=== PATIENT | male | born 1965 | race Caucasian/White ===

== ENCOUNTER 2020-09-27 20:40 | Inpatient (IN) | payer OTHER ==
[~2020-09-27] VITALS: Ht 185.4 cm; Wt 105.2 kg
[2020-09-27 20:40] VITALS: BP 118/83
--- NOTE | 2020-09-27 20:50 | NUR ---
Pt. arrived on unit at 2049 by EMS from [place]. Pt. complains of some discomfort. Call light left within reach and bed in lowest position. Will continue to monitor.
[2020-09-27] MEDS ORDERED: ONDANSETRON PF 4 MG/2 ML VIAL. IVP PRN (21:45)
[2020-09-27] MEDS ORDERED: ACETAMINOPHEN 325 MG TABLET. PO PRN (21:45)
[2020-09-27] MEDS: fentaNYL PF VIAL 100 MCG/2 ML VIAL IVP PRN (22:07)
[2020-09-27 23:00] VITALS: BP 114/76
[2020-09-28] VITALS (12 sets, daily range): BP systolic 109–162; BP diastolic 72–88
[2020-09-28] MEDS: fentaNYL PF VIAL 100 MCG/2 ML VIAL IVP PRN ×3 (03:05→09:42)
--- NOTE | 2020-09-28 03:52 | NUR ---
Pt. states he eats a keto diet at home. Addendum: 09/28/20 at 0358 by ANDRA LOWRY RN Amended: Links added.
[2020-09-28] MEDS ORDERED: SITA1TAB11 PO (04:02)
[2020-09-28] MEDS ORDERED: PHEN37.53 PO (04:02)
[2020-09-28] MEDS: BUPIVACAINE-EPI 0.5%-1:200000 MPF 30 ML VIAL. INJ ONE ×2 (07:30→12:23)
[2020-09-28 08:19] LABS: CREATININE 0.8 mg/dL (0.7-1.3); GFR 100.7
--- NOTE | 2020-09-28 08:38 | PDOC2 ---
ELTON TRAN SOIL SCIENTIST 09/28/20 0838: CONSULT Date of Consult Date of Consult DATE: 09/28/20 TIME: 08:34 Reason for Consult Reason for Consult: appendicitis Referring Physician Referring Physician: [facility] ER Identification/Chief Complaint Chief Complaint abdominal pain Source Source: Chart review, Patient History of Present Illness Reason for Visit: Reports started with right flank pain that radiated to his RLQ. It was a stabbing pain. No n/v, no constipation or diarrhea. Maybe some similar pain in past, but not really sure. Past Medical History Endocrine: Diabetes Past Surgical History Past Surgical History: No pertinent history Family History Family History: Other (noncontributory to current illness ) Social History No ALCOHOL: occassional Drugs: None Lives: with Family Current Medications Current Medications Current Medications Fentanyl Citrate (Fentanyl 2ml Vial) 50 mcg PRN Q3HRS PRN IVP SEVERE PAIN 7-10 Last administered on 09/28/20at 06:17; Start 09/27/20 at 21:45 Ondansetron HCl (Zofran) 4 mg PRN Q6HRS PRN IVP NAUSEA/VOMITING 1ST CHOICE; Start 09/27/20 at 21:45 Acetaminophen (Tylenol) 650 mg PRN Q6HRS PRN PO MILD PAIN / TEMP > 100.3'F; Start 09/27/20 at 21:45 Sodium Chloride 1,000 ml @ 75 mls/hr [id number] IV Last administered on 09/28/20at 00:00; Start 09/28/20 at 00:00 Influenza Virus Vaccine Quadrival (Fluzone Quad [id number] Syringe) 0.5 ml ONCE ONCE VAX IM ; Start 09/28/20 at 15:00; Stop 09/28/20 at 15:01 Bupivacaine HCl/ Epinephrine Bitart (Sensorcain-Epi 0.5%-1:[id number] Mpf) 30 ml 1X ONCE INJ ; Start 09/28/20 at 07:30; Stop 09/28/20 at 07:31; Status DC Active Scripts Active Reported Phentermine Hcl 37.5 Mg Capsule 1 Cap PO [id number] Janumet 50-1,000 Mg Tablet (Sitagliptin Phos/Metformin Hcl) 1 Each Tablet 1 Tab PO BID Allergies Allergies: Coded Allergies: No Known Drug Allergies (Unverified , 09/27/20) ROS General: No: Chills, Other (fevers) PSYCHOLOGICAL ROS: No: Anxiety, Depression Eyes: No Blurry vision, No Double vision HEENT: No: Heacaches, Sore Throat Hematological and Lymphatic: No: Bleeding Problems, Blood Clots Respiratory: No: Cough, Shortness of breath Cardiovascular: No Chest Pain, No Palpitations Gastrointestinal: Yes Other (see hpi) Genitourinary: No Dysuria, No Retention Musculoskeletal: No Joint Pain, No Muscle Pain Neurological: No Impaired Coord/balance, No Numbness/Tingling Skin: No Pruritus, No Rash Physical Exam General: Alert, Oriented X3, Cooperative HEENT: Atraumatic, PERRLA Lungs: Clear to auscultation, Normal air movement Heart: Regular rate, Normal S1, Normal S2 Abdomen: Soft, Other (RLQ TTP with guarding ) Extremities: No clubbing, No cyanosis Skin: No rashes, No breakdown Neuro: Normal gait, Normal speech Psych/Mental Status: Mental status NL, Mood NL MUSCULOSKELETAL: No deformity, No swelling Vitals VITALS Vital Signs Date Time Temp Pulse Resp B/P (MAP) Pulse Ox O2 Delivery O2 Flow Rate FiO2 09/28/20 07:00 98.1 92 16 109/74 (86) 96 Room Air 98.1 Labs Labs Laboratory Tests Test 09/27/20 20:56 09/28/20 07:00 09/28/20 07:35 Glucose (Fingerstick) 142 mg/dL (70-99) 150 mg/dL (70-99) Sodium Level 141 mmol/L (136-145) Potassium Level 4.0 mmol/L (3.5-5.1) Chloride Level 106 mmol/L (98-107) Carbon Dioxide Level 26 mmol/L (21-32) Anion Gap 9 (6-14) Blood Urea Nitrogen 8 mg/dL (8-26) Creatinine 0.8 mg/dL (0.7-1.3) Estimated GFR (Cockcroft-Gault) 100.7 Glucose Level 133 mg/dL (70-99) Calcium Level 9.0 mg/dL (8.5-10.1) Laboratory Tests Test 09/27/20 20:56 09/28/20 07:00 09/28/20 07:35 Glucose (Fingerstick) 142 mg/dL (70-99) 150 mg/dL (70-99) Sodium Level 141 mmol/L (136-145) Potassium Level 4.0 mmol/L (3.5-5.1) Chloride Level 106 mmol/L (98-107) Carbon Dioxide Level 26 mmol/L (21-32) Anion Gap 9 (6-14) Blood Urea Nitrogen 8 mg/dL (8-26) Creatinine 0.8 mg/dL (0.7-1.3) Estimated GFR (Cockcroft-Gault) 100.7 Glucose Level 133 mg/dL (70-99) Calcium Level 9.0 mg/dL (8.5-10.1) Assessment/Plan Assessment/Plan acute appendicitis add abx plan lap appy today dm management per IPC MADISYN JOHNSON MD 09/28/20 1201: CONSULT Assessment/Plan Assessment/Plan Pt seen and examined by myself; 55 year old male who developed R flank and RLQ pain yesterday. He reported to the ER at [facility] and a CT scan was suggestive of appendicitis. PMH/PSH/ROS/SH as above; exam: alert, oriented, lungs clear,heart RR and R, abdomen soft, tender with guarding in RLQ, ext neg for edema; labs and CT reviewed. A/P) Acute appendicitis, plan for lap appy. The details and risks of surgery were discussed with the patient. He understands and would like to proceed. ELTON TRAN APRN Sep 28, 2020 08:38 MADISYN JOHNSON MD Sep 28, 2020 12:01
--- NOTE | 2020-09-28 09:42 | NUR ---
SW following. Discussed with RN, pt from home, room air, NPO. Pt having surgery today. RN advised no SW needs at this time. SW will continue to follow.
[2020-09-28] MEDS ORDERED: DEXTROSE 50% 25 GM / 50ML DISP.SYRIN. IV PRN (09:45)
[2020-09-28] MEDS ORDERED: PROCHLORPERAZINE 10 MG/2 ML VIAL. IV PRN (10:45)
[2020-09-28] MEDS ORDERED: HYDROmorphone 2 MG/ML VIAL IV PRN (10:45)
[2020-09-28] MEDS ORDERED: LIDOCAINE 1% PF 2 ML VIAL. ID PRN (10:45)
[2020-09-28] MEDS ORDERED: fentaNYL PF VIAL 100 MCG/2 ML VIAL IV PRN (10:45)
[2020-09-28] MEDS: IV RINGERS,LACTATED 1000ML 1,000 ML IV SCH ×2 (10:45→13:30)
[2020-09-28] MEDS ORDERED: ONDANSETRON PF 4 MG/2 ML VIAL. IV PRN (10:45)
[2020-09-28] MEDS ORDERED: MORPHINE SULFATE 2 MG/ML VIAL. IV PRN (10:45)
[2020-09-28] MEDS: INSULIN LISPRO 100 UNIT/ML 3ML VIAL for OP,RR ONLY. SQ PRN ×2 (11:23→15:56)
[2020-09-28] MEDS ORDERED: LIDOCAINE 2% PF 5 ML VIAL. ONE (11:28)
[2020-09-28] MEDS ORDERED: DEXAMETHASONE SOD PHOS 4 MG/ML VIAL ONE (11:28)
[2020-09-28] MEDS ORDERED: ONDANSETRON PF 4 MG/2 ML VIAL. ONE (11:28)
[2020-09-28] MEDS ORDERED: PROPOFOL 10 MG/ML (20ML) VIAL. IV ONE (11:28)
[2020-09-28] MEDS ORDERED: SEVOFLURANE 61 TO 120 MINUTES. IH ONE (11:28)
[2020-09-28] MEDS ORDERED: fentaNYL PF VIAL 100 MCG/2 ML VIAL ONE ×2 (11:28→15:13)
[2020-09-28] MEDS ORDERED: KETOROLAC 30 MG/ML VIAL. ONE (11:28)
[2020-09-28] MEDS ORDERED: ROCURONIUM 50 MG/5 ML VIAL. ONE ×2 (11:28→12:58)
[2020-09-28] MEDS: PIPERACILLIN/TAZOBACTAM 3.375 GM in IV NORMAL SALINE 50ML 50 ML IV SCH ×3 (11:30→23:43)
[2020-09-28] MEDS ORDERED: GLYCOPYRROLATE 1 MG/5 ML VIAL. ONE (12:26)
[2020-09-28] MEDS ORDERED: NEOSTIGMINE METHYLSULFATE 5 MG/5 ML SYRINGE. ONE (12:26)
[2020-09-28] MEDS: IV NORMAL SALINE 1000ML BAG 1,000 ML IV SCH ×3 (13:20→18:19)
--- NOTE | 2020-09-28 14:29 | PDOC4 ---
Operative Note Operative Note Preoperative Diagnosis: Acute Appendicitis Postoperative Diagnosis: Acute appendicitis, possible chronic Procedure: Laparoscopic converted to open appendectomy Surgeon: Esvin Marketing Data Specialist: Jefry CLIFTON Anesthesia: Gen. EBL: 50 mL Specimen: Appendix to pathology Drains: 19 Fr GRICELDA drain Complications: None Indication: The patient is a 55-year-old male who reported to the emergency department with abdominal pain. The evaluation is consistent with acute appendicitis. The patient was offered surgical treatment with a laparoscopic appendectomy. The risks of surgery were discussed which include bleeding, infection, visceral injury, pain, open conversion, anesthetic risk, potential need for additional surgery or procedure. The patient understands and would like to proceed. Description: The patient was taken to the operating room and placed supine on the operating table. Gen. anesthesia was performed. The abdomen was prepped with ChloraPrep and draped in a standard surgical manner. A supraumbilical incision was made through which a veress needle was inserted and a pneumoperitoneum was created. A visualized 5 mm trocar was inserted and the laparoscope was introduced. In the left lower quadrant a 5 mm trocar was inserted. In the suprapubic region a 12 mm trocar was inserted. There was an obvious inflammator y process in the right abdomen with the terminal ileum densely adherent to the cecum.. The ileum was mobilized away exposing a very thickened hardened appendix. The surrounding inflammatory reaction was very fibrotic and initially raised concerns for a possible malignancy. The mesoappendix was bluntly from the appendix. The mesoappendix was controlled using several clips and it was divided. We made gradual progress freeing up the appendix proximally. The very fibrotic inflammatory reaction made this difficult. In addition the base of the appendix appeared inverted into the cecum which was difficult to fully visualize laparoscopically. Due to these changes we elected to convert to an open procedure. A vertical midline incision was made in the skin with a scalpel. Cautery dissection was carried down to the fascia. The fascia and peritoneum were opened for the length of the incision. The Omni retractor was used for the remainder of the case to facilitate exposure. We began mobilizing the cecum in order to better clarify the anatomy and the origin of the appendix. The fibrotic inflammatory process appeared to involve the right lower quadrant sidewall. Gradually we were able to see and mobilize the appendix at its suspected junction with the cecum. The appendix was amputated off the cecum using an Endo JD 45 stapling device. The appendix was sent to pathology and a frozen section was requested out of concern for malignancy. Frozen section evaluation seem to suggest appendicitis with a chronic component. The right lower quadrant was then irrigated with sterile saline which was suctioned. The staple line was visualized and appeared intact and hemostasis was good. No other abnormalities were identified grossly. A 19 Citizen [place] round Link drain was left in the right lower quadrant with an exit site at the left lower quadrant laparoscopic incision. This was secured to the skin with 2-0 silk. The midline fascia was then approximated with 1 PDS. A Carmelina drain was left in the subcutaneous space which exited inferiorly. This was secured to the skin with 3-0 Vicryl. The subcutaneous tissue was closed with 3-0 Vicryl and the skin approximated with 4-0 Monocryl. A sterile dressing was then applied. The patient tolerated the procedure well and was sent to the recovery room in stable condition. At the end of the case all counts were correct. MADISYN JOHNSON MD Sep 28, 2020 14:29
[2020-09-28] MEDS ORDERED: NALOXONE 0.4 MG/ML VIAL. IV PRN (14:30)
[2020-09-28] MEDS ORDERED: FLU VACC QS 2020-21(6MOS+)/PF 0.5 ML SYRINGE. VAX IM ONE (15:00)
[2020-09-28] MEDS: fentaNYL PF VIAL 100 MCG/2 ML VIAL IV PRN ×2 (15:18→15:35)
[2020-09-28] MEDS: HYDROmorphone 12mg/30ml PCA 30 ML IV PRN (15:26)
--- NOTE | 2020-09-28 17:29 | PDOC1 ---
History and Physical Date of Admission Date of Admission 09/28/2020 / Identification/Chief Complaint Chief Complaint Kinsey smith Source Source: Chart review, Patient History of Present Illness History of Present Illness Patient is a 55-year-old gentleman with past medical history of diabetes who was in his usual state of health until approximately couple of hours prior to his evaluation at [facility] when he complained of sharp pain sudden onset of right lower quadrant which is a recurrence of previous bouts as he relates to me. He rated the pain at 8 out of 10 intensity with no associated nausea vomiting he did have some diaphoresis due to the discomfort no urinary symptoms no constipation no diarrhea. He was diagnosed with acute appendicitis in the outlying facility and transferred to our institution for definitive treatment with appendectomy. At the time my evaluation the patient is mildly uncomfortable and is awaiting for surgical intervention. Reassurance has been provided the patient denied any headache blurred vision no dysphagia odynophagia no slurred speech no chest pain palpitations no shortness of breath no other complaints were voiced no urinary symptoms. Plan of care explained detail all of her concerns and progress to the best of my abilities Past Medical History Endocrine: Diabetes Past Surgical History Past Surgical History: No pertinent history Family History Family History: No Significant, Other (noncontributory to current illness ) Social History Smoke: No ALCOHOL: none Drugs: None Current Medications Current Medications Current Medications Medications (Trade) Dose Ordered Sig/Raymond Start Time Stop Time Status Last Admin Dose Admin Acetaminophen (Tylenol) 650 mg PRN Q6HRS PRN 09/27/20 21:45 Bupivacaine HCl/ Epinephrine Bitart (Sensorcain-Epi 0.5%-1:696728 Mpf) 30 ml 1X ONCE 09/28/20 07:30 09/28/20 07:31 DC Dexamethasone Sodium Phosphate (Decadron) 4 mg STK-MED ONCE 09/28/20 11:28 09/28/20 11:29 DC Dextrose (Dextrose 50%-Water Syringe) 12.5 gm PRN Q15MIN PRN 09/28/20 09:45 Fentanyl Citrate (Fentanyl 2ml Vial) 100 mcg STK-MED ONCE 09/28/20 15:13 09/28/20 15:14 DC Glycopyrrolate (Robinul) 1 mg STK-MED ONCE 09/28/20 12:26 09/28/20 12:26 DC Hydromorphone HCl 30 ml @ 0 mls/hr CONT PRN PRN 09/28/20 14:30 09/28/20 15:26 0 MLS/HR Hydromorphone HCl (Dilaudid) 0.5 mg PRN Q10MIN PRN 09/28/20 10:45 09/29/20 10:44 Influenza Virus Vaccine Quadrival (Fluzone Quad Syringe) 0.5 ml ONCE ONCE 09/28/20 15:00 09/28/20 15:01 DC Insulin Glargine (Lantus Syringe) 10 unit QHS 09/28/20 21:00 Insulin Human Lispro (HumaLOG VIAL for OP,RR ONLY) 0-10 units PRN Q1HR PRN 09/28/20 11:30 09/29/20 11:29 09/28/20 15:56 4 UNIT Ketorolac Tromethamine (Toradol 30mg Vial) 30 mg STK-MED ONCE 09/28/20 11:28 09/28/20 11:29 DC Lidocaine HCl (Lidocaine Pf 2% Vial) 5 ml STK-MED ONCE 09/28/20 11:28 09/28/20 11:29 DC Lidocaine HCl (Xylocaine-Mpf 1% 2ml Vial) 2 ml PRN 1X PRN 09/28/20 10:45 09/29/20 10:44 Morphine Sulfate (Morphine Sulfate) 1 mg PRN Q10MIN PRN 09/28/20 10:45 09/29/20 10:44 Naloxone HCl (Narcan) 0.4 mg PRN Q2MIN PRN 09/28/20 14:30 Neostigmine Polk (Neostigmine Methylsulfate) 5 mg STK-MED ONCE 09/28/20 12:26 09/28/20 12:26 DC Ondansetron HCl (Zofran) 4 mg STK-MED ONCE 09/28/20 11:28 09/28/20 11:29 DC Piperacillin Sod/ Tazobactam Sod 3.375 gm/Sodium Chloride 50 ml @ 100 mls/hr Q6HRS 09/28/20 12:00 09/28/20 11:30 100 MLS/HR Prochlorperazine Edisylate (Compazine) 5 mg PACU PRN PRN 09/28/20 10:45 09/29/20 10:44 Propofol (Diprivan) 200 mg STK-MED ONCE 09/28/20 11:28 09/28/20 11:29 DC Ringer's Solution 1,000 ml @ 30 mls/hr Q24H 09/28/20 10:45 09/28/20 22:44 09/28/20 13:30 30 MLS/HR Rocuronium Polk (Zemuron) 50 mg STK-MED ONCE 09/28/20 12:58 09/28/20 12:58 DC Sevoflurane (Ultane) 60 ml STK-MED ONCE 09/28/20 11:28 09/28/20 11:28 DC Sodium Chloride 1,000 ml @ 25 mls/hr Q24H 09/28/20 14:30 Allergies Allergies Allergies Coded Allergies Type Severity Reaction Last Updated Verified No Known Drug Allergies 09/28/20 No ROS Review of System CONSTITUTIONAL: No fever or chills EYES: No recent changes SKIN: No rash or itching CARDIOVASCULAR: No chest pain, syncope, palpitations, or edema RESPIRATORY: No SOB or cough GASTROINTESTINAL: No nausea, vomiting or abdominal pain NEUROLOGICAL: No headaches or weakness ENDOCRINE: No cold or heat intolerance GENITOURINARY: No urgency or frequency of urination MUSCULOSKELETAL: No back pain or joint pain LYMPHATICS: No enlarged lymph nodes PSYCHIATRIC: No anxiety or depression Physical Exam Physical Exam GEN.: No apparent distress. Alert and oriented. HEENT: Head is normocephalic, atraumatic NECK: Supple. LUNGS: Clear to auscultation. HEART: RRR, S1, S2 present. Peripheral pulses intact ABDOMEN: Soft, nontender. Positive bowel sounds. EXTREMITIES: Without any cyanosis. NEUROLOGIC: Normal speech, normal tone PSYCHIATRIC: Normal affect, normal mood. SKIN: No ulcerations Vitals Vitals Vital Signs Date Time Temp Pulse Resp B/P (MAP) Pulse Ox O2 Delivery O2 Flow Rate FiO2 09/28/20 16:03 Nasal Cannula 2 09/28/20 16:02 96 20 128/79 95 09/28/20 15:47 98.1 98.1 Labs Labs Laboratory Tests Test 09/27/20 20:56 09/28/20 07:00 09/28/20 07:35 09/28/20 10:05 Glucose (Fingerstick) 142 mg/dL (70-99) 150 mg/dL (70-99) 132 mg/dL (70-99) Sodium Level 141 mmol/L (136-145) Potassium Level 4.0 mmol/L (3.5-5.1) Chloride Level 106 mmol/L (98-107) Carbon Dioxide Level 26 mmol/L (21-32) Anion Gap 9 (6-14) Blood Urea Nitrogen 8 mg/dL (8-26) Creatinine 0.8 mg/dL (0.7-1.3) Estimated GFR (Cockcroft-Gault) 100.7 Glucose Level 133 mg/dL (70-99) Calcium Level 9.0 mg/dL (8.5-10.1) Test 09/28/20 15:52 09/28/20 16:42 Glucose (Fingerstick) 160 mg/dL (70-99) 156 mg/dL (70-99) Laboratory Tests Test 09/27/20 20:56 09/28/20 07:00 09/28/20 07:35 09/28/20 10:05 Glucose (Fingerstick) 142 mg/dL (70-99) 150 mg/dL (70-99) 132 mg/dL (70-99) Sodium Level 141 mmol/L (136-145) Potassium Level 4.0 mmol/L (3.5-5.1) Chloride Level 106 mmol/L (98-107) Carbon Dioxide Level 26 mmol/L (21-32) Anion Gap 9 (6-14) Blood Urea Nitrogen 8 mg/dL (8-26) Creatinine 0.8 mg/dL (0.7-1.3) Estimated GFR (Cockcroft-Gault) 100.7 Glucose Level 133 mg/dL (70-99) Calcium Level 9.0 mg/dL (8.5-10.1) Test 09/28/20 15:52 09/28/20 16:42 Glucose (Fingerstick) 160 mg/dL (70-99) 156 mg/dL (70-99) VTE Prophylaxis Ordered VTE Prophylaxis Devices: No VTE Pharmacological Prophylaxi: Yes Assessment/Plan Assessment/Plan Acute appendicitis Leukocytosis secondary to the above Diabetes mellitus type 2 Plan Resume home medications Pain management Incentive spirometer DT prophylaxis with Lovenox once approved by medical surgical tech Sequential compression devices Justifications for Admission Other Justification MARGI OGDEN MD Sep 28, 2020 17:29
[2020-09-28] MEDS: INSULIN GLARGINE SYRINGE. SQ SCH ×2 (21:00→22:22)
[2020-09-29 03:28] VITALS: BP 131/75
[2020-09-29] MEDS: PIPERACILLIN/TAZOBACTAM 3.375 GM in IV NORMAL SALINE 50ML 50 ML IV SCH ×3 (05:52→18:00)
[2020-09-29 07:00] VITALS: BP 124/85
[2020-09-29 08:57] LABS: BASO % 0 % (0-3); EOS # 0.1 x10^3/uL (0.0-0.7); EOS % 1 % (0-3); HEMATOCRIT 42.4 % (39.0-53.0); HEMOGLOBIN 14.2 g/dL (13.0-17.5); LYMPH # 1.1 x10^3/uL (1.0-4.8); LYMPH % 10 % (24-48); MEAN CORPUSCULAR HEMOGLOBIN 29 pg (25-35); MEAN CORPUSCULAR HGB CONC 34 g/dL (31-37); MEAN CORPUSCULAR VOLUME 87 fL (79-100); MONO # 1.4 x10^3/uL (0.0-1.1); MONO % 13 % (0-9); NEUT # 8.2 x10^3/uL (1.8-7.7); NEUT % 76 % (31-73); PLATELET COUNT 247 x10^3/uL (140-400); RED BLOOD COUNT 4.88 x10^6/uL (4.30-5.70); RED CELL DISTRIBUTION WIDTH 12.9 % (11.5-14.5); WHITE BLOOD COUNT 10.7 x10^3/uL (4.0-11.0)
[2020-09-29 09:06] LABS: CREATININE 1.2 mg/dL (0.7-1.3); GFR 63.1; POTASSIUM 3.7 mmol/L (3.5-5.1)
[2020-09-29 11:00] VITALS: BP 134/66
[2020-09-29] MEDS: IV NORMAL SALINE 1000ML BAG 1,000 ML IV SCH ×3 (12:40→16:00)
--- NOTE | 2020-09-29 12:41 | PDOC ---
ELTON TRAN PASSENGER SERVICE REPRESENTATIVE 09/29/20 1241: SURGICAL PROGRESS NOTE DATE: 09/29/20 TIME: 12:39 Subjective no flatus still very sore movement makes worse Vital Signs Vital Signs Date Time Temp Pulse Resp B/P (MAP) Pulse Ox O2 Delivery O2 Flow Rate FiO2 09/29/20 11:00 98.3 87 16 134/66 (88) 97 Room Air 98.3 09/29/20 03:28 2.0 I&O Intake and Output 09/29/20 07:00 Intake Total 1370 ml Output Total 2094 ml Balance -724 ml Intake Oral 120 ml IV Total 1250 ml Output Urine Total 1950 ml Drainage Total 94 ml Estimated Blood Loss 50 ml General: Alert, Oriented X3, Cooperative Abdomen: Soft, Other (binder in place, ger serosang ) Labs Laboratory Tests Test 09/27/20 20:56 09/28/20 07:00 09/28/20 07:35 09/28/20 10:05 Glucose (Fingerstick) 142 mg/dL (70-99) 150 mg/dL (70-99) 132 mg/dL (70-99) Sodium Level 141 mmol/L (136-145) Potassium Level 4.0 mmol/L (3.5-5.1) Chloride Level 106 mmol/L (98-107) Carbon Dioxide Level 26 mmol/L (21-32) Anion Gap 9 (6-14) Blood Urea Nitrogen 8 mg/dL (8-26) Creatinine 0.8 mg/dL (0.7-1.3) Estimated GFR (Cockcroft-Gault) 100.7 Glucose Level 133 mg/dL (70-99) Calcium Level 9.0 mg/dL (8.5-10.1) Test 09/28/20 15:52 09/28/20 16:42 09/28/20 21:09 09/29/20 07:15 Glucose (Fingerstick) 160 mg/dL (70-99) 156 mg/dL (70-99) 136 mg/dL (70-99) 136 mg/dL (70-99) Test 09/29/20 08:08 09/29/20 11:04 White Blood Count 10.7 x10^3/uL (4.0-11.0) Red Blood Count 4.88 x10^6/uL (4.30-5.70) Hemoglobin 14.2 g/dL (13.0-17.5) Hematocrit 42.4 % (39.0-53.0) Mean Corpuscular Volume 87 fL (79-100) Mean Corpuscular Hemoglobin 29 pg (25-35) Mean Corpuscular Hemoglobin Concent 34 g/dL (31-37) Red Cell Distribution Width 12.9 % (11.5-14.5) Platelet Count 247 x10^3/uL (140-400) Neutrophils (%) (Auto) 76 % (31-73) Lymphocytes (%) (Auto) 10 % (24-48) Monocytes (%) (Auto) 13 % (0-9) Eosinophils (%) (Auto) 1 % (0-3) Basophils (%) (Auto) 0 % (0-3) Neutrophils # (Auto) 8.2 x10^3/uL (1.8-7.7) Lymphocytes # (Auto) 1.1 x10^3/uL (1.0-4.8) Monocytes # (Auto) 1.4 x10^3/uL (0.0-1.1) Eosinophils # (Auto) 0.1 x10^3/uL (0.0-0.7) Basophils # (Auto) 0.0 x10^3/uL (0.0-0.2) Sodium Level 143 mmol/L (136-145) Potassium Level 3.7 mmol/L (3.5-5.1) Chloride Level 107 mmol/L (98-107) Carbon Dioxide Level 25 mmol/L (21-32) Anion Gap 11 (6-14) Blood Urea Nitrogen 10 mg/dL (8-26) Creatinine 1.2 mg/dL (0.7-1.3) Estimated GFR (Cockcroft-Gault) 63.1 Glucose Level 130 mg/dL (70-99) Calcium Level 9.0 mg/dL (8.5-10.1) Glucose (Fingerstick) 137 mg/dL (70-99) Laboratory Tests Test 09/28/20 15:52 09/28/20 16:42 09/28/20 21:09 09/29/20 07:15 Glucose (Fingerstick) 160 mg/dL (70-99) 156 mg/dL (70-99) 136 mg/dL (70-99) 136 mg/dL (70-99) Test 09/29/20 08:08 09/29/20 11:04 White Blood Count 10.7 x10^3/uL (4.0-11.0) Red Blood Count 4.88 x10^6/uL (4.30-5.70) Hemoglobin 14.2 g/dL (13.0-17.5) Hematocrit 42.4 % (39.0-53.0) Mean Corpuscular Volume 87 fL (79-100) Mean Corpuscular Hemoglobin 29 pg (25-35) Mean Corpuscular Hemoglobin Concent 34 g/dL (31-37) Red Cell Distribution Width 12.9 % (11.5-14.5) Platelet Count 247 x10^3/uL (140-400) Neutrophils (%) (Auto) 76 % (31-73) Lymphocytes (%) (Auto) 10 % (24-48) Monocytes (%) (Auto) 13 % (0-9) Eosinophils (%) (Auto) 1 % (0-3) Basophils (%) (Auto) 0 % (0-3) Neutrophils # (Auto) 8.2 x10^3/uL (1.8-7.7) Lymphocytes # (Auto) 1.1 x10^3/uL (1.0-4.8) Monocytes # (Auto) 1.4 x10^3/uL (0.0-1.1) Eosinophils # (Auto) 0.1 x10^3/uL (0.0-0.7) Basophils # (Auto) 0.0 x10^3/uL (0.0-0.2) Sodium Level 143 mmol/L (136-145) Potassium Level 3.7 mmol/L (3.5-5.1) Chloride Level 107 mmol/L (98-107) Carbon Dioxide Level 25 mmol/L (21-32) Anion Gap 11 (6-14) Blood Urea Nitrogen 10 mg/dL (8-26) Creatinine 1.2 mg/dL (0.7-1.3) Estimated GFR (Cockcroft-Gault) 63.1 Glucose Level 130 mg/dL (70-99) Calcium Level 9.0 mg/dL (8.5-10.1) Glucose (Fingerstick) 137 mg/dL (70-99) Assessment/Plan s/p open appy would hold npo with sips/ice chips until some bowel function continue drain, abx Justicifation of Admission Dx: Justifications for Admission: Justification of Admission Dx: Yes Comments: appendicitis MADISYN JOHNSON MD 09/29/206: SURGICAL PROGRESS NOTE Assessment/Plan agree with above ELTON TRAN APRN Sep 29, 2020 12:41 MADISYN JOHNSON MD Sep 29, 2020 21:36
[2020-09-29 15:00] VITALS: BP 132/86
--- NOTE | 2020-09-29 18:48 | PATHOLOGY ---
[facility] Accession Number: [id number] . 01 Material submitted: . appendix - APPENDIX FS . 01 Clinical history: . ACUTE APPENDICITIS LAPROSCOPIC APPENDECTOMY . 02 Frozen section diagnosis: . INTRAOPERATIVE CONSULTATION DIAGNOSIS WITH FROZEN SECTION (Dr. Frederick Draper) . Appendix, appendectomy: - Appendicitis - no evidence of malignancy. . The results are reported to Dr. Mcallister in the operating room. The tissue remaining from frozen section is submitted for permanent sections as A1. . . GROSS DESCRIPTION The specimen is received fresh for intraoperative consultation and is designated "appendix". This consists of a tortuous, S-shaped appendix which measures approximately 7 cm in overall length. The proximal margin has an attached staple. The serosal surface is pink to reddish mata and focally roughened. There appears to be a small yellow calcified nodule attached to the external surface of the distal portion of the specimen, measuring up to 0.5 cm. Approximately 2.0 cm from the proximal margin, the appendix measures up to 1.8 cm in diameter and is somewhat firm on palpation. The distal tip of the appendix measures up to 0.6 cm in diameter. Sectioning of the firm area of the proximal appendix reveals a small lumen containing mata gelatinous material. The surrounding fat is somewhat firm and indurated. A sales and marketing representative portion from this area is submitted for frozen section as FSA1. (JPM:zoltan/stephane; 09/28/2020) . Frozen section performed at [facility], [address] [place] [id number]. NGOC/NINI . 02 Diagnosis: Appendix, appendectomy: - Chronic and focal acute appendicitis and periappendicitis. - Small mucin distended diverticulum of distal appendiceal tip. (JPM:stephane 09/29/2020) PAYTON 09/29/2020 1101 Local . 02 Comment: There is no evidence of malignancy. (JPM:pit 09/29/2020) . 02 Electronically signed: . Frederick Draper MD, Pathologist NPI- [id number] . 01 Gross description: . PLEASE SEE GROSS DESCRIPTION UNDER FROZEN SECTION DIAGNOSIS. . The surgical margin is inked. Sectioning reveals a pinpoint to patent lumen. At the distal tip, there is an outpouched area filled with clear mucoid material. The remainder of the specimen is submitted from proximal to distal aspects in cassettes A2 through A6. (CAA; 09/28/2020) QAC/MBR 09/28/2020 1659 Local . 02 Pathologist provided ICD-10: K35.80, K36 . 02 CPT . 539963, 776392 Specimen Comment: A courtesy copy of this report has been sent to [phone] Specimen Comment: Report sent to Performed at: 01 [facility] [address] [facility] [address], [place] [id number] MD Cas Tse MD Phone: [phone] Performed at: 02 [facility] [address] [place], [place] [id number] MD Frederick Draper MD Phone: [phone]
[2020-09-29 19:24] VITALS: BP 139/89
[2020-09-29] MEDS: INSULIN GLARGINE SYRINGE. SQ SCH (20:00)
--- NOTE | 2020-09-29 20:45 | PDOC ---
PROGRESS NOTES Date of Service: DATE: 09/29/20 TIME: 20:38 Chief Complaint Chief Complaint Acute appendicitis Leukocytosis secondary to the above Diabetes mellitus type 2 Plan Resume home medications Pain management Incentive spirometer DT prophylaxis with Lovenox once approved by assembler surgical garment Sequential compression devices History of Present Illness History of Present Illness History of Present Illness Patient is a 55-year-old gentleman with past medical history of diabetes who was in his usual state of health until approximately couple of hours prior to his evaluation at [facility] when he complained of sharp pain sudden onset of right lower quadrant which is a recurrence of previous bouts as he relates to me. He rated the pain at 8 out of 10 intensity with no associated nausea vomiting he did have some diaphoresis due to the discomfort no urinary symptoms no constipation no diarrhea. He was diagnosed with acute appendicitis in the outlying facility and transferred to our institution for definitive treatment with appendectomy. At the time my evaluation the patient is mildly uncomfortable and is awaiting for surgical intervention. Reassurance has been provided the patient denied any headache blurred vision no dysphagia odynophagia no slurred speech no chest pain palpitations no shortness of breath no other complaints were voiced no urinary symptoms. Plan of care explained detail all of her concerns and progress to the best of my abilities 09/29: Patient in acute distress, seems to be in a lot of pain despite the EXTERMINATOR HEL[employer] TERM[employer] pump, no nausea, no vomiting reported. Vitals Vitals Vital Signs Date Time Temp Pulse Resp B/P (MAP) Pulse Ox O2 Delivery O2 Flow Rate FiO2 09/29/20 19:24 98.5 99 24 139/89 (106) 95 Nasal Cannula 2.0 98.5 Physical Exam General: Alert, Oriented X3, Cooperative Heart: Regular rate, Normal S1, Normal S2 Abdomen: Soft, Other (binder in place, ger serosang ) Extremities: No clubbing, No cyanosis Skin: No rashes, No breakdown Labs LABS Laboratory Tests Test 09/28/20 21:09 09/29/20 07:15 09/29/20 08:08 09/29/20 11:04 Glucose (Fingerstick) 136 mg/dL (70-99) 136 mg/dL (70-99) 137 mg/dL (70-99) White Blood Count 10.7 x10^3/uL (4.0-11.0) Red Blood Count 4.88 x10^6/uL (4.30-5.70) Hemoglobin 14.2 g/dL (13.0-17.5) Hematocrit 42.4 % (39.0-53.0) Mean Corpuscular Volume 87 fL (79-100) Mean Corpuscular Hemoglobin 29 pg (25-35) Mean Corpuscular Hemoglobin Concent 34 g/dL (31-37) Red Cell Distribution Width 12.9 % (11.5-14.5) Platelet Count 247 x10^3/uL (140-400) Neutrophils (%) (Auto) 76 % (31-73) Lymphocytes (%) (Auto) 10 % (24-48) Monocytes (%) (Auto) 13 % (0-9) Eosinophils (%) (Auto) 1 % (0-3) Basophils (%) (Auto) 0 % (0-3) Neutrophils # (Auto) 8.2 x10^3/uL (1.8-7.7) Lymphocytes # (Auto) 1.1 x10^3/uL (1.0-4.8) Monocytes # (Auto) 1.4 x10^3/uL (0.0-1.1) Eosinophils # (Auto) 0.1 x10^3/uL (0.0-0.7) Basophils # (Auto) 0.0 x10^3/uL (0.0-0.2) Sodium Level 143 mmol/L (136-145) Potassium Level 3.7 mmol/L (3.5-5.1) Chloride Level 107 mmol/L (98-107) Carbon Dioxide Level 25 mmol/L (21-32) Anion Gap 11 (6-14) Blood Urea Nitrogen 10 mg/dL (8-26) Creatinine 1.2 mg/dL (0.7-1.3) Estimated GFR (Cockcroft-Gault) 63.1 Glucose Level 130 mg/dL (70-99) Calcium Level 9.0 mg/dL (8.5-10.1) Test 09/29/20 16:59 09/29/20 19:54 Glucose (Fingerstick) 144 mg/dL (70-99) 171 mg/dL (70-99) Comment Review of Relevant I have reviewed the following items merrill (where applicable) has been applied. Labs Laboratory Tests Test 09/27/20 20:56 09/28/20 07:00 09/28/20 07:35 09/28/20 10:05 Glucose (Fingerstick) 142 mg/dL (70-99) 150 mg/dL (70-99) 132 mg/dL (70-99) Sodium Level 141 mmol/L (136-145) Potassium Level 4.0 mmol/L (3.5-5.1) Chloride Level 106 mmol/L (98-107) Carbon Dioxide Level 26 mmol/L (21-32) Anion Gap 9 (6-14) Blood Urea Nitrogen 8 mg/dL (8-26) Creatinine 0.8 mg/dL (0.7-1.3) Estimated GFR (Cockcroft-Gault) 100.7 Glucose Level 133 mg/dL (70-99) Calcium Level 9.0 mg/dL (8.5-10.1) Test 09/28/20 15:52 09/28/20 16:42 09/28/20 21:09 09/29/20 07:15 Glucose (Fingerstick) 160 mg/dL (70-99) 156 mg/dL (70-99) 136 mg/dL (70-99) 136 mg/dL (70-99) Test 09/29/20 08:08 09/29/20 11:04 09/29/20 16:59 09/29/20 19:54 White Blood Count 10.7 x10^3/uL (4.0-11.0) Red Blood Count 4.88 x10^6/uL (4.30-5.70) Hemoglobin 14.2 g/dL (13.0-17.5) Hematocrit 42.4 % (39.0-53.0) Mean Corpuscular Volume 87 fL (79-100) Mean Corpuscular Hemoglobin 29 pg (25-35) Mean Corpuscular Hemoglobin Concent 34 g/dL (31-37) Red Cell Distribution Width 12.9 % (11.5-14.5) Platelet Count 247 x10^3/uL (140-400) Neutrophils (%) (Auto) 76 % (31-73) Lymphocytes (%) (Auto) 10 % (24-48) Monocytes (%) (Auto) 13 % (0-9) Eosinophils (%) (Auto) 1 % (0-3) Basophils (%) (Auto) 0 % (0-3) Neutrophils # (Auto) 8.2 x10^3/uL (1.8-7.7) Lymphocytes # (Auto) 1.1 x10^3/uL (1.0-4.8) Monocytes # (Auto) 1.4 x10^3/uL (0.0-1.1) Eosinophils # (Auto) 0.1 x10^3/uL (0.0-0.7) Basophils # (Auto) 0.0 x10^3/uL (0.0-0.2) Sodium Level 143 mmol/L (136-145) Potassium Level 3.7 mmol/L (3.5-5.1) Chloride Level 107 mmol/L (98-107) Carbon Dioxide Level 25 mmol/L (21-32) Anion Gap 11 (6-14) Blood Urea Nitrogen 10 mg/dL (8-26) Creatinine 1.2 mg/dL (0.7-1.3) Estimated GFR (Cockcroft-Gault) 63.1 Glucose Level 130 mg/dL (70-99) Calcium Level 9.0 mg/dL (8.5-10.1) Glucose (Fingerstick) 137 mg/dL (70-99) 144 mg/dL (70-99) 171 mg/dL (70-99) Laboratory Tests Test 09/28/20 21:09 09/29/20 07:15 09/29/20 08:08 09/29/20 11:04 Glucose (Fingerstick) 136 mg/dL (70-99) 136 mg/dL (70-99) 137 mg/dL (70-99) White Blood Count 10.7 x10^3/uL (4.0-11.0) Red Blood Count 4.88 x10^6/uL (4.30-5.70) Hemoglobin 14.2 g/dL (13.0-17.5) Hematocrit 42.4 % (39.0-53.0) Mean Corpuscular Volume 87 fL (79-100) Mean Corpuscular Hemoglobin 29 pg (25-35) Mean Corpuscular Hemoglobin Concent 34 g/dL (31-37) Red Cell Distribution Width 12.9 % (11.5-14.5) Platelet Count 247 x10^3/uL (140-400) Neutrophils (%) (Auto) 76 % (31-73) Lymphocytes (%) (Auto) 10 % (24-48) Monocytes (%) (Auto) 13 % (0-9) Eosinophils (%) (Auto) 1 % (0-3) Basophils (%) (Auto) 0 % (0-3) Neutrophils # (Auto) 8.2 x10^3/uL (1.8-7.7) Lymphocytes # (Auto) 1.1 x10^3/uL (1.0-4.8) Monocytes # (Auto) 1.4 x10^3/uL (0.0-1.1) Eosinophils # (Auto) 0.1 x10^3/uL (0.0-0.7) Basophils # (Auto) 0.0 x10^3/uL (0.0-0.2) Sodium Level 143 mmol/L (136-145) Potassium Level 3.7 mmol/L (3.5-5.1) Chloride Level 107 mmol/L (98-107) Carbon Dioxide Level 25 mmol/L (21-32) Anion Gap 11 (6-14) Blood Urea Nitrogen 10 mg/dL (8-26) Creatinine 1.2 mg/dL (0.7-1.3) Estimated GFR (Cockcroft-Gault) 63.1 Glucose Level 130 mg/dL (70-99) Calcium Level 9.0 mg/dL (8.5-10.1) Test 09/29/20 16:59 09/29/20 19:54 Glucose (Fingerstick) 144 mg/dL (70-99) 171 mg/dL (70-99) Medications Current Medications Fentanyl Citrate (Fentanyl 2ml Vial) 50 mcg PRN Q3HRS PRN IVP SEVERE PAIN 7-10 Last administered on 09/28/20at 09:42; Start 09/27/20 at 21:45 Ondansetron HCl (Zofran) 4 mg PRN Q6HRS PRN IVP NAUSEA/VOMITING 1ST CHOICE; Start 09/27/20 at 21:45 Acetaminophen (Tylenol) 650 mg PRN Q6HRS PRN PO MILD PAIN / TEMP > 100.3'F; Start 09/27/20 at 21:45 Sodium Chloride 1,000 ml @ 75 mls/hr [id number] IV Last administered on 09/29/20at 12:40; Start 09/28/20 at 00:00 Influenza Virus Vaccine Quadrival (Fluzone Quad Syringe) 0.5 ml ONCE ONCE VAX IM ; Start 09/28/20 at 15:00; Stop 09/28/20 at 15:01; Status DC Bupivacaine HCl/ Epinephrine Bitart (Sensorcain-Epi 0.5%-1:[id number] Mpf) 30 ml 1X ONCE INJ ; Start 09/28/20 at 07:30; Stop 09/28/20 at 07:31; Status DC Piperacillin Sod/ Tazobactam Sod 3.375 gm/Sodium Chloride 50 ml @ 100 mls/hr Q6HRS IV Last administered on 09/29/20at 18:00; Start 09/28/20 at 12:00 Insulin Glargine (Lantus Syringe) 10 unit QHS SQ Last administered on 09/29/20at 20:00; Start 09/28/20 at 21:00 Dextrose (Dextrose 50%-Water Syringe) 12.5 gm PRN Q15MIN PRN IV SEE COMMENTS; Start 09/28/20 at 09:45 Ondansetron HCl (Zofran) 4 mg PRN Q6HRS PRN IV NAUSEA/VOMITING; Start 09/28/20 at 10:45; Stop 09/29/20 at 10:44; Status DC Fentanyl Citrate (Fentanyl 2ml Vial) 25 mcg PRN Q5MIN PRN IV MILD PAIN 1-3; Start 09/28/20 at 10:45; Stop 09/29/20 at 10:44; Status DC Fentanyl Citrate (Fentanyl 2ml Vial) 50 mcg PRN Q5MIN PRN IV MODERATE TO SEVERE PAIN Last administered on 09/28/20at 15:35; Start 09/28/20 at 10:45; Stop 09/29/20 at 10:44; Status DC Morphine Sulfate (Morphine Sulfate) 1 mg PRN Q10MIN PRN IV SEVERE PAIN 7-10; Start 09/28/20 at 10:45; Stop 09/29/20 at 10:44; Status DC Ringer's Solution 1,000 ml @ 30 mls/hr Q24H IV Last administered on 09/28/20at 13:30; Start 09/28/20 at 10:45; Stop 09/28/20 at 22:44; Status DC Lidocaine HCl (Xylocaine-Mpf 1% 2ml Vial) 2 ml PRN 1X PRN ID PRIOR TO IV START; Start 09/28/20 at 10:45; Stop 09/29/20 at 10:44; Status DC Hydromorphone HCl (Dilaudid) 0.5 mg PRN Q10MIN PRN IV SEV PAIN, Second choice; Start 09/28/20 at 10:45; Stop 09/29/20 at 10:44; Status DC Prochlorperazine Edisylate (Compazine) 5 mg PACU PRN PRN IV NAUSEA, MRX1; Start 09/28/20 at 10:45; Stop 09/29/20 at 10:44; Status DC Insulin Human Lispro (HumaLOG VIAL for OP,RR ONLY) 0-10 units PRN Q1HR PRN SQ PER PROTOCOL Last administered on 09/28/20at 15:56; Start 09/28/20 at 11:30; Stop 09/29/20 at 11:29; Status DC Rocuronium [place] (Zemuron) 50 mg STK-MED ONCE .ROUTE ; Start 09/28/20 at 11:28; Stop 09/28/20 at 11:28; Status DC Fentanyl Citrate (Fentanyl 2ml Vial) 100 mcg STK-MED ONCE .ROUTE ; Start 09/28/20 at 11:28; Stop 09/28/20 at 11:28; Status DC Sevoflurane (Ultane) 60 ml STK-MED ONCE IH ; Start 09/28/20 at 11:28; Stop 09/28/20 at 11:28; Status DC Dexamethasone Sodium Phosphate (Decadron) 4 mg STK-MED ONCE .ROUTE ; Start 09/28/20 at 11:28; Stop 09/28/20 at 11:29; Status DC Ketorolac Tromethamine (Toradol 30mg Vial) 30 mg STK-MED ONCE .ROUTE ; Start 09/28/20 at 11:28; Stop 09/28/20 at 11:29; Status DC Propofol (Diprivan) 200 mg STK-MED ONCE IV ; Start 09/28/20 at 11:28; Stop 09/28/20 at 11:29; Status DC Lidocaine HCl (Lidocaine Pf 2% Vial) 5 ml STK-MED ONCE .ROUTE ; Start 09/28/20 at 11:28; Stop 09/28/20 at 11:29; Status DC Ondansetron HCl (Zofran) 4 mg STK-MED ONCE .ROUTE ; Start 09/28/20 at 11:28; Sto p 09/28/20 at 11:29; Status DC Glycopyrrolate (Robinul) 1 mg STK-MED ONCE .ROUTE ; Start 09/28/20 at 12:26; Stop 09/28/20 at 12:26; Status DC Neostigmine [place] (Neostigmine Methylsulfate) 5 mg STK-MED ONCE .ROUTE ; Start 09/28/20 at 12:26; Stop 09/28/20 at 12:26; Status DC Rocuronium [place] (Zemuron) 50 mg STK-MED ONCE .ROUTE ; Start 09/28/20 at 12:58; Stop 09/28/20 at 12:58; Status DC Naloxone HCl (Narcan) 0.4 mg PRN Q2MIN PRN IV SEE INSTRUCTIONS; Start 09/28/20 at 14:30 Sodium Chloride 1,000 ml @ 25 mls/hr Q24H IV Last administered on 09/28/20at 18:19; Start 09/28/20 at 14:30 Hydromorphone HCl 30 ml @ 0 mls/hr CONT PRN PRN IV PER PROTOCOL Last administered on 09/28/20at 15:26; Start 09/28/20 at 14:30 Fentanyl Citrate (Fentanyl 2ml Vial) 100 mcg STK-MED ONCE .ROUTE ; Start 09/28/20 at 15:13; Stop 09/28/20 at 15:14; Status DC Active Scripts Active Reported Phentermine Hcl 37.5 Mg Capsule 1 Cap PO [id number] Janumet 50-1,000 Mg Tablet (Sitagliptin Phos/Metformin Hcl) 1 Each Tablet 1 Tab PO BID Vitals/I & O Vital Sign - Last 24 Hours 09/28/20 09/28/20 09/29/20 09/29/20 21:12 23:23 03:28 07:00 Temp 98.1 98.1 99.2 98.5 98.1 98.1 99.2 98.5 Pulse 100 103 100 99 Resp 20 24 18 18 B/P (MAP) 162/88 (112) 128/80 (96) 131/75 (93) 124/85 (98) Pulse Ox 97 97 97 96 O2 Delivery Room Air Nasal Cannula Nasal Cannula Room Air O2 Flow Rate 2.0 2.0 2.0 09/29/20 09/29/20 09/29/20 11:00 15:00 19:24 Temp 98.3 97.4 98.5 98.3 97.4 98.5 Pulse 87 101 99 Resp 16 16 24 B/P (MAP) 134/66 (88) 132/86 (101) 139/89 (106) Pulse Ox 97 96 95 O2 Delivery Room Air Room Air Nasal Cannula O2 Flow Rate 2.0 Intake and Output 09/28/20 09/28/20 09/29/20 15:00 23:00 07:00 Intake Total 1250 ml 0 ml 120 ml Output Total 280 ml 510 ml 1304 ml Balance 970 ml -510 ml -1184 ml Justicifation of Admission Dx: Justifications for Admission: Justification of Admission Dx: Yes MARGI OGDEN MD Sep 29, 2020 20:45
[2020-09-29 23:00] VITALS: BP 143/86
[2020-09-30 03:18] VITALS: BP 136/90
[2020-09-30] MEDS: IV NORMAL SALINE 1000ML BAG 1,000 ML IV SCH ×3 (04:56→21:47)
[2020-09-30] MEDS: PIPERACILLIN/TAZOBACTAM 3.375 GM in IV NORMAL SALINE 50ML 50 ML IV SCH ×4 (06:04→17:34)
[2020-09-30 07:28] VITALS: BP 142/91
[2020-09-30] MEDS: HYDROmorphone 12mg/30ml PCA 30 ML IV PRN (08:35)
[2020-09-30 10:38] VITALS: BP 138/93
[2020-09-30] MEDS ORDERED: DEXTROSE 50% 25 GM / 50ML DISP.SYRIN. IV PRN (13:45)
[2020-09-30 14:35] VITALS: BP 143/91
--- NOTE | 2020-09-30 16:14 | PDOC ---
SURGICAL PROGRESS NOTE DATE: 09/30/20 TIME: 16:13 Subjective Pt reports feeling better, but still with nausea with clears Vital Signs Vital Signs Date Time Temp Pulse Resp B/P (MAP) Pulse Ox O2 Delivery O2 Flow Rate FiO2 09/30/20 14:35 98.1 92 18 143/91 (108) 95 Nasal Cannula 2.0 98.1 I&O Intake and Output 09/30/20 07:00 Intake Total 2380 ml Output Total 795 ml Balance 1585 ml Intake Oral 1080 ml IV Total 1300 ml Drainage Total 795 ml # Voids 1 General: Alert, Oriented X3, Cooperative, mild distress Abdomen: Soft, Other (mild TTP) Labs Laboratory Tests Test 09/28/20 16:42 09/28/20 21:09 09/29/20 07:15 09/29/20 08:08 Glucose (Fingerstick) 156 mg/dL (70-99) 136 mg/dL (70-99) 136 mg/dL (70-99) White Blood Count 10.7 x10^3/uL (4.0-11.0) Red Blood Count 4.88 x10^6/uL (4.30-5.70) Hemoglobin 14.2 g/dL (13.0-17.5) Hematocrit 42.4 % (39.0-53.0) Mean Corpuscular Volume 87 fL (79-100) Mean Corpuscular Hemoglobin 29 pg (25-35) Mean Corpuscular Hemoglobin Concent 34 g/dL (31-37) Red Cell Distribution Width 12.9 % (11.5-14.5) Platelet Count 247 x10^3/uL (140-400) Neutrophils (%) (Auto) 76 % (31-73) Lymphocytes (%) (Auto) 10 % (24-48) Monocytes (%) (Auto) 13 % (0-9) Eosinophils (%) (Auto) 1 % (0-3) Basophils (%) (Auto) 0 % (0-3) Neutrophils # (Auto) 8.2 x10^3/uL (1.8-7.7) Lymphocytes # (Auto) 1.1 x10^3/uL (1.0-4.8) Monocytes # (Auto) 1.4 x10^3/uL (0.0-1.1) Eosinophils # (Auto) 0.1 x10^3/uL (0.0-0.7) Basophils # (Auto) 0.0 x10^3/uL (0.0-0.2) Sodium Level 143 mmol/L (136-145) Potassium Level 3.7 mmol/L (3.5-5.1) Chloride Level 107 mmol/L (98-107) Carbon Dioxide Level 25 mmol/L (21-32) Anion Gap 11 (6-14) Blood Urea Nitrogen 10 mg/dL (8-26) Creatinine 1.2 mg/dL (0.7-1.3) Estimated GFR (Cockcroft-Gault) 63.1 Glucose Level 130 mg/dL (70-99) Calcium Level 9.0 mg/dL (8.5-10.1) Test 09/29/20 11:04 09/29/20 16:59 09/29/20 19:54 09/30/20 07:20 Glucose (Fingerstick) 137 mg/dL (70-99) 144 mg/dL (70-99) 171 mg/dL (70-99) 180 mg/dL (70-99) Test 09/30/20 11:11 Glucose (Fingerstick) 201 mg/dL (70-99) Laboratory Tests Test 09/29/20 16:59 09/29/20 19:54 09/30/20 07:20 09/30/20 11:11 Glucose (Fingerstick) 144 mg/dL (70-99) 171 mg/dL (70-99) 180 mg/dL (70-99) 201 mg/dL (70-99) Problem List s/p open appendectomy await improved bowel fxn Justicifation of Admission Dx: Justifications for Admission: Justification of Admission Dx: Yes BISI STEWART MD Sep 30, 2020 16:14
[2020-09-30] MEDS: INSULIN LISPRO 300 UNITS/3 ML VIAL. SQ SCH (16:23)
--- NOTE | 2020-09-30 18:41 | PDOC ---
PROGRESS NOTES Date of Service: DATE: 09/30/20 TIME: 18:40 Chief Complaint Chief Complaint Acute appendicitis Leukocytosis secondary to the above Diabetes mellitus type 2 Plan Resume home medications Pain management Incentive spirometer Awaiting for proper return of bowel function as per operating room surgical technologist DT prophylaxis with Lovenox once approved by operating room surgical technologist Sequential compression devices History of Present Illness History of Present Illness History of Present Illness Patient is a 55-year-old gentleman with past medical history of diabetes who was in his usual state of health until approximately couple of hours prior to his evaluation at [facility] when he complained of sharp pain sudden onset of right lower quadrant which is a recurrence of previous bouts as he relates to me. He rated the pain at 8 out of 10 intensity with no associated nausea vomiting he did have some diaphoresis due to the discomfort no urinary symptoms no constipation no diarrhea. He was diagnosed with acute appendicitis in the outlying facility and transferred to our institution for definitive treatment with appendectomy. At the time my evaluation the patient is mildly uncomfortable and is awaiting for surgical intervention. Reassurance has been provided the patient denied any headache blurred vision no dysphagia odynophagia no slurred speech no chest pain palpitations no shortness of breath no other complaints were voiced no urinary symptoms. Plan of care explained detail all of her concerns and progress to the best of my abilities 09/29: Patient in acute distress, seems to be in a lot of pain despite the CARGO TANK MECHANIC pump, no nausea, no vomiting reported. 09/30: Patient still feeling nauseous despite keeping him on a clear liquid diet. Patient encouraged to ambulate more. Incentive spirometry has also been encourage no new complaints Vitals Vitals Vital Signs Date Time Temp Pulse Resp B/P (MAP) Pulse Ox O2 Delivery O2 Flow Rate FiO2 09/30/20 14:35 98.1 92 18 143/91 (108) 95 Nasal Cannula 2.0 98.1 Physical Exam General: Alert, Oriented X3, Cooperative, mild distress Heart: Regular rate, Normal S1, Normal S2 Abdomen: Soft, Other (mild TTP) Extremities: No clubbing, No cyanosis Skin: No rashes, No breakdown Labs LABS Laboratory Tests Test 09/29/20 19:54 09/30/20 07:20 09/30/20 11:11 09/30/20 16:15 Glucose (Fingerstick) 171 mg/dL (70-99) 180 mg/dL (70-99) 201 mg/dL (70-99) 175 mg/dL (70-99) Review of Systems Review of Systems Review of systems pertinent as per HPI otherwise 14 point review of system is negative Comment Review of Relevant I have reviewed the following items merrill (where applicable) has been applied. Labs Laboratory Tests Test 09/28/20 21:09 09/29/20 07:15 09/29/20 08:08 09/29/20 11:04 Glucose (Fingerstick) 136 mg/dL (70-99) 136 mg/dL (70-99) 137 mg/dL (70-99) White Blood Count 10.7 x10^3/uL (4.0-11.0) Red Blood Count 4.88 x10^6/uL (4.30-5.70) Hemoglobin 14.2 g/dL (13.0-17.5) Hematocrit 42.4 % (39.0-53.0) Mean Corpuscular Volume 87 fL (79-100) Mean Corpuscular Hemoglobin 29 pg (25-35) Mean Corpuscular Hemoglobin Concent 34 g/dL (31-37) Red Cell Distribution Width 12.9 % (11.5-14.5) Platelet Count 247 x10^3/uL (140-400) Neutrophils (%) (Auto) 76 % (31-73) Lymphocytes (%) (Auto) 10 % (24-48) Monocytes (%) (Auto) 13 % (0-9) Eosinophils (%) (Auto) 1 % (0-3) Basophils (%) (Auto) 0 % (0-3) Neutrophils # (Auto) 8.2 x10^3/uL (1.8-7.7) Lymphocytes # (Auto) 1.1 x10^3/uL (1.0-4.8) Monocytes # (Auto) 1.4 x10^3/uL (0.0-1.1) Eosinophils # (Auto) 0.1 x10^3/uL (0.0-0.7) Basophils # (Auto) 0.0 x10^3/uL (0.0-0.2) Sodium Level 143 mmol/L (136-145) Potassium Level 3.7 mmol/L (3.5-5.1) Chloride Level 107 mmol/L (98-107) Carbon Dioxide Level 25 mmol/L (21-32) Anion Gap 11 (6-14) Blood Urea Nitrogen 10 mg/dL (8-26) Creatinine 1.2 mg/dL (0.7-1.3) Estimated GFR (Cockcroft-Gault) 63.1 Glucose Level 130 mg/dL (70-99) Calcium Level 9.0 mg/dL (8.5-10.1) Test 09/29/20 16:59 09/29/20 19:54 09/30/20 07:20 09/30/20 11:11 Glucose (Fingerstick) 144 mg/dL (70-99) 171 mg/dL (70-99) 180 mg/dL (70-99) 201 mg/dL (70-99) Test 09/30/20 16:15 Glucose (Fingerstick) 175 mg/dL (70-99) Laboratory Tests Test 09/29/20 19:54 09/30/20 07:20 09/30/20 11:11 09/30/20 16:15 Glucose (Fingerstick) 171 mg/dL (70-99) 180 mg/dL (70-99) 201 mg/dL (70-99) 175 mg/dL (70-99) Medications Current Medications Fentanyl Citrate (Fentanyl 2ml Vial) 50 mcg PRN Q3HRS PRN IVP SEVERE PAIN 7-10 Last administered on 09/28/20at 09:42; Start 09/27/20 at 21:45; Stop 09/30/20 at 14:48; Status DC Ondansetron HCl (Zofran) 4 mg PRN Q6HRS PRN IVP NAUSEA/VOMITING 1ST CHOICE Last administered on 09/30/20at 11:27; Start 09/27/20 at 21:45 Acetaminophen (Tylenol) 650 mg PRN Q6HRS PRN PO MILD PAIN / TEMP > 100.3'F; Start 09/27/20 at 21:45 Sodium Chloride 1,000 ml @ 75 mls/hr [id number] IV Last administered on 09/30/20at 04:56; Start 09/28/20 at 00:00 Influenza Virus Vaccine Quadrival (Fluzone Quad Syringe) 0.5 ml ONCE ONCE VAX IM ; Start 09/28/20 at 15:00; Stop 09/28/20 at 15:01; Status DC Bupivacaine HCl/ Epinephrine Bitart (Sensorcain-Epi 0.5%-1:445574 Mpf) 30 ml 1X ONCE INJ ; Start 09/28/20 at 07:30; Stop 09/28/20 at 07:31; Status DC Piperacillin Sod/ Tazobactam Sod 3.375 gm/Sodium Chloride 50 ml @ 100 mls/hr Q6HRS IV Last administered on 09/30/20at 17:34; Start 09/28/20 at 12:00 Insulin Glargine (Lantus Syringe) 10 unit QHS SQ Last administered on 09/29/20at 20:00; Start 09/28/20 at 21:00 Dextrose (Dextrose 50%-Water Syringe) 12.5 gm PRN Q15MIN PRN IV SEE COMMENTS; Start 09/28/20 at 09:45 Ondansetron HCl (Zofran) 4 mg PRN Q6HRS PRN IV NAUSEA/VOMITING; Start 09/28/20 at 10:45; Stop 09/29/20 at 10:44; Status DC Fentanyl Citrate (Fentanyl 2ml Vial) 25 mcg PRN Q5MIN PRN IV MILD PAIN 1-3; Start 09/28/20 at 10:45; Stop 09/29/20 at 10:44; Status DC Fentanyl Citrate (Fentanyl 2ml Vial) 50 mcg PRN Q5MIN PRN IV MODERATE TO SEVERE PAIN Last administered on 09/28/20at 15:35; Start 09/28/20 at 10:45; Stop 09/29/20 at 10:44; Status DC Morphine Sulfate (Morphine Sulfate) 1 mg PRN Q10MIN PRN IV SEVERE PAIN 7-10; Start 09/28/20 at 10:45; Stop 09/29/20 at 10:44; Status DC Ringer's Solution 1,000 ml @ 30 mls/hr Q24H IV Last administered on 09/28/20at 13:30; Start 09/28/20 at 10:45; Stop 09/28/20 at 22:44; Status DC Lidocaine HCl (Xylocaine-Mpf 1% 2ml Vial) 2 ml PRN 1X PRN ID PRIOR TO IV START; Start 09/28/20 at 10:45; Stop 09/29/20 at 10:44; Status DC Hydromorphone HCl (Dilaudid) 0.5 mg PRN Q10MIN PRN IV SEV PAIN, Second choice; Start 09/28/20 at 10:45; Stop 09/29/20 at 10:44; Status DC Prochlorperazine Edisylate (Compazine) 5 mg PACU PRN PRN IV NAUSEA, MRX1; Start 09/28/20 at 10:45; Stop 09/29/20 at 10:44; Status DC Insulin Human Lispro (HumaLOG VIAL for OP,RR ONLY) 0-10 units PRN Q1HR PRN SQ PER PROTOCOL Last administered on 09/28/20at 15:56; Start 09/28/20 at 11:30; Stop 09/29/20 at 11:29; Status DC Rocuronium [place] (Zemuron) 50 mg STK-MED ONCE .ROUTE ; Start 09/28/20 at 11:28; Stop 09/28/20 at 11:28; Status DC Fentanyl Citrate (Fentanyl 2ml Vial) 100 mcg STK-MED ONCE .ROUTE ; Start 09/28/20 at 11:28; Stop 09/28/20 at 11:28; Status DC Sevoflurane (Ultane) 60 ml STK-MED ONCE IH ; Start 09/28/20 at 11:28; Stop 09/28/20 at 11:28; Status DC Dexamethasone Sodium Phosphate (Decadron) 4 mg STK-MED ONCE .ROUTE ; Start 09/28/20 at 11:28; Stop 09/28/20 at 11:29; Status DC Ketorolac Tromethamine (Toradol 30mg Vial) 30 mg STK-MED ONCE .ROUTE ; Start 09/28/20 at 11:28; Stop 09/28/20 at 11:29; Status DC Propofol (Diprivan) 200 mg STK-MED ONCE IV ; Start 09/28/20 at 11:28; Stop 09/28/20 at 11:29; Status DC Lidocaine HCl (Lidocaine Pf 2% Vial) 5 ml STK-MED ONCE .ROUTE ; Start 09/28/20 at 11:28; Stop 09/28/20 at 11:29; Status DC Ondansetron HCl (Zofran) 4 mg STK-MED ONCE .ROUTE ; Start 09/28/20 at 11:28; Stop 09/28/20 at 11:29; Status DC Glycopyrrolate (Robinul) 1 mg STK-MED ONCE .ROUTE ; Start 09/28/20 at 12:26; Stop 09/28/20 at 12:26; Status DC Neostigmine [place] (Neostigmine Methylsulfate) 5 mg STK-MED ONCE .ROUTE ; Start 09/28/20 at 12:26; Stop 09/28/20 at 12:26; Status DC Rocuronium [place] (Zemuron) 50 mg STK-MED ONCE .ROUTE ; Start 09/28/20 at 12:58; Stop 09/28/20 at 12:58; Status DC Naloxone HCl (Narcan) 0.4 mg PRN Q2MIN PRN IV SEE INSTRUCTIONS; Start 09/28/20 at 14:30 Sodium Chloride 1,000 ml @ 25 mls/hr Q24H IV Last administered on 09/30/20at 11:25; Start 09/28/20 at 14:30 Hydromorphone HCl 30 ml @ 0 mls/hr CONT PRN PRN IV PER PROTOCOL Last administered on 09/30/20at 08:35; Start 09/28/20 at 14:30 Fentanyl Citrate (Fentanyl 2ml Vial) 100 mcg STK-MED ONCE .ROUTE ; Start 09/28/20 at 15:13; Stop 09/28/20 at 15:14; Status DC Insulin Human Lispro (HumaLOG) 0-7 UNITS TIDWMEALS SQ ; Start 09/30/20 at 17:00 Dextrose (Dextrose 50%-Water Syringe) 12.5 gm PRN Q15MIN PRN IV SEE COMMENTS; Start 09/30/20 at 13:45; Stop 09/30/20 at 13:35; Status DC Lactobacillus Rhamnosus (Culturelle) 1 cap BID PO ; Start 09/30/20 at 21:00 Active Scripts Active Reported Phentermine Hcl 37.5 Mg Capsule 1 Cap PO [id number] Janumet 50-1,000 Mg Tablet (Sitagliptin Phos/Metformin Hcl) 1 Each Tablet 1 Tab PO BID Vitals/I & O Vital Sign - Last 24 Hours 09/29/20 09/29/20 09/29/20 09/30/20 19:24 20:00 23:00 03:18 Temp 98.5 98.2 99.7 98.5 98.2 99.7 Pulse 99 102 95 Resp 24 26 24 B/P (MAP) 139/89 (106) 143/86 (105) 136/90 (105) Pulse Ox 95 95 95 O2 Delivery Nasal Cannula Nasal Cannula Nasal Cannula Nasal Cannula O2 Flow Rate 2.0 2.0 2.0 2.0 09/30/20 09/30/20 09/30/20 09/30/20 07:28 08:00 08:35 08:59 Temp 98.6 98.6 Pulse 93 Resp 18 16 16 B/P (MAP) 142/91 (108) Pulse Ox 96 O2 Delivery Nasal Cannula Nasal Cannula Nasal Cannula Nasal Cannula O2 Flow Rate 2.0 2.0 2.0 2.0 09/30/20 09/30/20 10:38 14:35 Temp 98.8 98.1 98.8 98.1 Pulse 96 92 Resp 18 18 B/P (MAP) 138/93 (108) 143/91 (108) Pulse Ox 96 95 O2 Delivery Nasal Cannula Nasal Cannula O2 Flow Rate 2.0 2.0 Intake and Output 09/29/20 09/29/20 09/30/20 15:00 23:00 07:00 Intake Total 230 ml 2150 ml Output Total 60 ml 60 ml 675 ml Balance -60 ml 170 ml 1475 ml Justicifation of Admission Dx: Justifications for Admission: Justification of Admission Dx: Yes MARGI OGDEN MD Sep 30, 2020 18:41
[2020-09-30 19:00] VITALS: BP 133/87
[2020-09-30] MEDS: LACTOBACILLUS RHAMNOSUS GG 1 CAPSULE. PO SCH (21:48)
[2020-09-30] MEDS: INSULIN GLARGINE SYRINGE. SQ SCH (22:02)
[2020-09-30 23:56] VITALS: BP 132/86
[2020-10-01] MEDS: PIPERACILLIN/TAZOBACTAM 3.375 GM in IV NORMAL SALINE 50ML 50 ML IV SCH ×4 (01:32→17:37)
[2020-10-01 03:11] VITALS: BP 135/88
[2020-10-01 07:08] VITALS: BP 140/88
[2020-10-01] MEDS: IV NORMAL SALINE 1000ML BAG 1,000 ML IV SCH ×2 (08:00→14:30)
[2020-10-01] MEDS: LACTOBACILLUS RHAMNOSUS GG 1 CAPSULE. PO SCH ×2 (09:03→22:10)
[2020-10-01] MEDS: INSULIN LISPRO 300 UNITS/3 ML VIAL. SQ SCH ×3 (09:06→16:25)
--- NOTE | 2020-10-01 09:38 | PDOC ---
PROGRESS NOTES Date of Service: DATE: 10/01/20 TIME: 09:27 Chief Complaint Chief Complaint Acute appendicitis Leukocytosis secondary to the above Diabetes mellitus type 2 Plan Resume home medications Pain management Incentive spirometer Awaiting for proper return of bowel function as per regional vice president surgical sales DT prophylaxis with Lovenox once approved by regional vice president surgical sales Sequential compression devices History of Present Illness History of Present Illness History of Present Illness Patient is a 55-year-old gentleman with past medical history of diabetes who was in his usual state of health until approximately couple of hours prior to his evaluation at [facility] when he complained of sharp pain sudden onset of right lower quadrant which is a recurrence of previous bouts as he relates to me. He rated the pain at 8 out of 10 intensity with no associated nausea vomiting he did have some diaphoresis due to the discomfort no urinary symptoms no constipation no diarrhea. He was diagnosed with acute appendicitis in the outlying facility and transferred to our institution for definitive treatment with appendectomy. At the time my evaluation the patient is mildly uncomfortable and is awaiting for surgical intervention. Reassurance has been provided the patient denied any headache blurred vision no dysphagia odynophagia no slurred speech no chest pain palpitations no shortness of breath no other complaints were voiced no urinary symptoms. Plan of care explained detail all of her concerns and progress to the best of my abilities 09/29: Patient in acute distress, seems to be in a lot of pain despite the MANAGER TELEMETRY pump, no nausea, no vomiting reported. 09/30: Patient still feeling nauseous despite keeping him on a clear liquid diet. Patient encouraged to ambulate more. Incentive spirometry has also been encourage no new complaints Vitals Vitals Vital Signs Date Time Temp Pulse Resp B/P (MAP) Pulse Ox O2 Delivery O2 Flow Rate FiO2 10/01/20 07:08 97.9 78 18 140/88 (105) 96 Nasal Cannula 2.0 97.9 Physical Exam General: Alert, Oriented X3, Cooperative, mild distress Heart: Regular rate, Normal S1, Normal S2 Abdomen: Soft, Other (mild TTP) Extremities: No clubbing, No cyanosis Skin: No rashes, No breakdown Labs LABS Laboratory Tests Test 09/30/20 11:11 09/30/20 16:15 09/30/20 19:43 10/01/20 06:59 Glucose (Fingerstick) 201 mg/dL (70-99) 175 mg/dL (70-99) 199 mg/dL (70-99) 167 mg/dL (70-99) Review of Systems Review of Systems Review of systems pertinent as per HPI otherwise 14 point review of system is negative Comment Review of Relevant I have reviewed the following items merrill (where applicable) has been applied. Labs Laboratory Tests Test 09/29/20 11:04 09/29/20 16:59 09/29/20 19:54 09/30/20 07:20 Glucose (Fingerstick) 137 mg/dL (70-99) 144 mg/dL (70-99) 171 mg/dL (70-99) 180 mg/dL (70-99) Test 09/30/20 11:11 09/30/20 16:15 09/30/20 19:43 10/01/20 06:59 Glucose (Fingerstick) 201 mg/dL (70-99) 175 mg/dL (70-99) 199 mg/dL (70-99) 167 mg/dL (70-99) Laboratory Tests Test 09/30/20 11:11 09/30/20 16:15 09/30/20 19:43 10/01/20 06:59 Glucose (Fingerstick) 201 mg/dL (70-99) 175 mg/dL (70-99) 199 mg/dL (70-99) 167 mg/dL (70-99) Medications Current Medications Fentanyl Citrate (Fentanyl 2ml Vial) 50 mcg PRN Q3HRS PRN IVP SEVERE PAIN 7-10 Last administered on 09/28/20at 09:42; Start 09/27/20 at 21:45; Stop 09/30/20 at 14:48; Status DC Ondansetron HCl (Zofran) 4 mg PRN Q6HRS PRN IVP NAUSEA/VOMITING 1ST CHOICE Last administered on 09/30/20at 11:27; Start 09/27/20 at 21:45 Acetaminophen (Tylenol) 650 mg PRN Q6HRS PRN PO MILD PAIN / TEMP > 100.3'F; Start 09/27/20 at 21:45 Sodium Chloride 1,000 ml @ 75 mls/hr [id number] IV Last administered on 10/01/20at 08:00; Start 09/28/20 at 00:00 Influenza Virus Vaccine Quadrival (Fluzone Quad Syringe) 0.5 ml ONCE ONCE VAX IM ; Start 09/28/20 at 15:00; Stop 09/28/20 at 15:01; Status DC Bupivacaine HCl/ Epinephrine Bitart (Sensorcain-Epi 0.5%-1:[id number] Mpf) 30 ml 1X ONCE INJ ; Start 09/28/20 at 07:30; Stop 09/28/20 at 07:31; Status DC Piperacillin Sod/ Tazobactam Sod 3.375 gm/Sodium Chloride 50 ml @ 100 mls/hr Q6HRS IV Last administered on 10/01/20at 06:45; Start 09/28/20 at 12:00 Insulin Glargine (Lantus Syringe) 10 unit QHS SQ Last administered on 09/30/20at 22:02; Start 09/28/20 at 21:00 Dextrose (Dextrose 50%-Water Syringe) 12.5 gm PRN Q15MIN PRN IV SEE COMMENTS; Start 09/28/20 at 09:45 Ondansetron HCl (Zofran) 4 mg PRN Q6HRS PRN IV NAUSEA/VOMITING; Start 09/28/20 at 10:45; Stop 09/29/20 at 10:44; Status DC Fentanyl Citrate (Fentanyl 2ml Vial) 25 mcg PRN Q5MIN PRN IV MILD PAIN 1-3; Start 09/28/20 at 10:45; Stop 09/29/20 at 10:44; Status DC Fentanyl Citrate (Fentanyl 2ml Vial) 50 mcg PRN Q5MIN PRN IV MODERATE TO SEVERE PAIN Last administered on 09/28/20at 15:35; Start 09/28/20 at 10:45; Stop 09/29/20 at 10:44; Status DC Morphine Sulfate (Morphine Sulfate) 1 mg PRN Q10MIN PRN IV SEVERE PAIN 7-10; Start 09/28/20 at 10:45; Stop 09/29/20 at 10:44; Status DC Ringer's Solution 1,000 ml @ 30 mls/hr Q24H IV Last administered on 09/28/20at 13:30; Start 09/28/20 at 10:45; Stop 09/28/20 at 22:44; Status DC Lidocaine HCl (Xylocaine-Mpf 1% 2ml Vial) 2 ml PRN 1X PRN ID PRIOR TO IV START; Start 09/28/20 at 10:45; Stop 09/29/20 at 10:44; Status DC Hydromorphone HCl (Dilaudid) 0.5 mg PRN Q10MIN PRN IV SEV PAIN, Second choice; Start 09/28/20 at 10:45; Stop 09/29/20 at 10:44; Status DC Prochlorperazine Edisylate (Compazine) 5 mg PACU PRN PRN IV NAUSEA, MRX1; Start 09/28/20 at 10:45; Stop 09/29/20 at 10:44; Status DC Insulin Human Lispro (HumaLOG VIAL for OP,RR ONLY) 0-10 units PRN Q1HR PRN SQ PER PROTOCOL Last administered on 09/28/20at 15:56; Start 09/28/20 at 11:30; Stop 09/29/20 at 11:29; Status DC Rocuronium [place] (Zemuron) 50 mg STK-MED ONCE .ROUTE ; Start 09/28/20 at 11:28; Stop 09/28/20 at 11:28; Status DC Fentanyl Citrate (Fentanyl 2ml Vial) 100 mcg STK-MED ONCE .ROUTE ; Start 09/28/20 at 11:28; Stop 09/28/20 at 11:28; Status DC Sevoflurane (Ultane) 60 ml STK-MED ONCE IH ; Start 09/28/20 at 11:28; Stop 09/28/20 at 11:28; Status DC Dexamethasone Sodium Phosphate (Decadron) 4 mg STK-MED ONCE .ROUTE ; Start 09/28/20 at 11:28; Stop 09/28/20 at 11:29; Status DC Ketorolac Tromethamine (Toradol 30mg Vial) 30 mg STK-MED ONCE .ROUTE ; Start 09/28/20 at 11:28; Stop 09/28/20 at 11:29; Status DC Propofol (Diprivan) 200 mg STK-MED ONCE IV ; Start 09/28/20 at 11:28; Stop 09/28/20 at 11:29; Status DC Lidocaine HCl (Lidocaine Pf 2% Vial) 5 ml STK-MED ONCE .ROUTE ; Start 09/28/20 at 11:28; Stop 09/28/20 at 11:29; Status DC Ondansetron HCl (Zofran) 4 mg STK-MED ONCE .ROUTE ; Start 09/28/20 at 11:28; Stop 09/28/20 at 11:29; Status DC Glycopyrrolate (Robinul) 1 mg STK-MED ONCE .ROUTE ; Start 09/28/20 at 12:26; Stop 09/28/20 at 12:26; Status DC Neostigmine [place] (Neostigmine Methylsulfate) 5 mg STK-MED ONCE .ROUTE ; Start 09/28/20 at 12:26; Stop 09/28/20 at 12:26; Status DC Rocuronium [place] (Zemuron) 50 mg STK-MED ONCE .ROUTE ; Start 09/28/20 at 12:58; Stop 09/28/20 at 12:58; Status DC Naloxone HCl (Narcan) 0.4 mg PRN Q2MIN PRN IV SEE INSTRUCTIONS; Start 09/28/20 at 14:30 Sodium Chloride 1,000 ml @ 25 mls/hr Q24H IV Last administered on 09/30/20at 11:25; Start 09/28/20 at 14:30 Hydromorphone HCl 30 ml @ 0 mls/hr CONT PRN PRN IV PER PROTOCOL Last administered on 09/30/20at 08:35; Start 09/28/20 at 14:30 Fentanyl Citrate (Fentanyl 2ml Vial) 100 mcg STK-MED ONCE .ROUTE ; Start 09/28/20 at 15:13; Stop 09/28/20 at 15:14; Status DC Insulin Human Lispro (HumaLOG) 0-7 UNITS TIDWMEALS SQ Last administered on 10/01/20at 09:06; Start 09/30/20 at 17:00 Dextrose (Dextrose 50%-Water Syringe) 12.5 gm PRN Q15MIN PRN IV SEE COMMENTS; Start 09/30/20 at 13:45; Stop 09/30/20 at 13:35; Status DC Lactobacillus Rhamnosus (Culturelle) 1 cap BID PO Last administered on 10/01/20at 09:03; Start 09/30/20 at 21:00 Active Scripts Active Reported Phentermine Hcl 37.5 Mg Capsule 1 Cap PO DAILYWBKFT Janumet 50-1,000 Mg Tablet (Sitagliptin Phos/Metformin Hcl) 1 Each Tablet 1 Tab PO BID Vitals/I & O Vital Sign - Last 24 Hours 09/30/20 09/30/20 09/30/20 09/30/20 10:38 14:35 19:00 20:05 Temp 98.8 98.1 98.4 98.8 98.1 98.4 Pulse 96 92 89 Resp 18 18 18 B/P (MAP) 138/93 (108) 143/91 (108) 133/87 (102) Pulse Ox 96 95 97 O2 Delivery Nasal Cannula Nasal Cannula Nasal Cannula Nasal Cannula O2 Flow Rate 2.0 2.0 2.0 2.0 09/30/20 10/01/20 10/01/20 23:56 03:11 07:08 Temp 98.5 98.4 97.9 98.5 98.4 97.9 Pulse 81 82 78 Resp 18 18 18 B/P (MAP) 132/86 (101) 135/88 (104) 140/88 (105) Pulse Ox 97 96 96 O2 Delivery Nasal Cannula Nasal Cannula Nasal Cannula O2 Flow Rate 2.0 2.0 2.0 Intake and Output 09/30/20 09/30/20 10/01/20 15:00 23:00 07:00 Intake Total 1522 ml Output Total 20 ml 610 ml 100 ml Balance -20 ml -610 ml 1422 ml Justicifation of Admission Dx: Justifications for Admission: Justification of Admission Dx: Yes MARGI OGDEN MD Oct 01, 2020 09:38
[2020-10-01 11:00] VITALS: BP 143/84
[2020-10-01 15:00] VITALS: BP 134/75
--- NOTE | 2020-10-01 15:25 | PDOC ---
SURGICAL PROGRESS NOTE DATE: 10/01/20 TIME: 15:23 Subjective Pt feels better, nausea improved, so clears, some flatus, no stool Vital Signs Vital Signs Date Time Temp Pulse Resp B/P (MAP) Pulse Ox O2 Delivery O2 Flow Rate FiO2 10/01/20 15:00 98.1 77 20 134/75 (94) 97 Nasal Cannula 2.0 98.1 I&O Intake and Output 10/01/20 07:00 Intake Total 1522 ml Output Total 730 ml Balance 792 ml IV Total 1522 ml Drainage Total 730 ml # Voids 1 General: Alert, Oriented X3, Cooperative, No acute distress Abdomen: Soft, No tenderness Labs Laboratory Tests Test 09/29/20 16:59 09/29/20 19:54 09/30/20 07:20 09/30/20 11:11 Glucose (Fingerstick) 144 mg/dL (70-99) 171 mg/dL (70-99) 180 mg/dL (70-99) 201 mg/dL (70-99) Test 09/30/20 16:15 09/30/20 19:43 10/01/20 06:59 10/01/20 11:09 Glucose (Fingerstick) 175 mg/dL (70-99) 199 mg/dL (70-99) 167 mg/dL (70-99) 139 mg/dL (70-99) Laboratory Tests Test 09/30/20 16:15 09/30/20 19:43 10/01/20 06:59 10/01/20 11:09 Glucose (Fingerstick) 175 mg/dL (70-99) 199 mg/dL (70-99) 167 mg/dL (70-99) 139 mg/dL (70-99) Problem List s/p open appendectomy will try soft diet, encouraged OOB. Justicifation of Admission Dx: Justifications for Admission: Justification of Admission Dx: Yes BISI STEWART MD Oct 01, 2020 15:25
[2020-10-01 19:00] VITALS: BP 131/81
[2020-10-01] MEDS: INSULIN GLARGINE SYRINGE. SQ SCH (22:19)
[2020-10-01 22:53] VITALS: BP 139/84
[2020-10-02] MEDS: PIPERACILLIN/TAZOBACTAM 3.375 GM in IV NORMAL SALINE 50ML 50 ML IV SCH ×5 (00:08→23:23)
[2020-10-02] MEDS: IV NORMAL SALINE 1000ML BAG 1,000 ML IV SCH ×3 (01:29→14:30)
[2020-10-02 03:00] VITALS: BP 123/72
[2020-10-02 07:00] VITALS: BP 136/83
[2020-10-02] MEDS: INSULIN LISPRO 300 UNITS/3 ML VIAL. SQ SCH ×3 (07:43→17:00)
--- NOTE | 2020-10-02 08:49 | PDOC ---
ELTON TRAN TECHNICAL SALES SUPPORT SPECIALIST 10/02/20 0849: SURGICAL PROGRESS NOTE DATE: 10/02/20 TIME: 08:47 Subjective tolerating diet pain improving drain with a lot of drainage Vital Signs Vital Signs Date Time Temp Pulse Resp B/P (MAP) Pulse Ox O2 Delivery O2 Flow Rate FiO2 10/02/20 07:00 98.4 67 18 136/83 (100) 99 Nasal Cannula 2.0 98.4 I&O Intake and Output 10/02/20 07:00 Intake Total 900 ml Output Total 1140 ml Balance -240 ml IV Total 900 ml Output Urine Total 450 ml Drainage Total 690 ml # Voids 2 General: Alert, Oriented X3, Cooperative Abdomen: Soft, Other (ND, incision c/d/i, angie in place, drain serous ) Labs Laboratory Tests Test 09/30/20 11:11 09/30/20 16:15 09/30/20 19:43 10/01/20 06:59 Glucose (Fingerstick) 201 mg/dL (70-99) 175 mg/dL (70-99) 199 mg/dL (70-99) 167 mg/dL (70-99) Test 10/01/20 11:09 10/01/20 16:15 10/01/20 20:43 10/02/20 07:02 Glucose (Fingerstick) 139 mg/dL (70-99) 142 mg/dL (70-99) 151 mg/dL (70-99) 127 mg/dL (70-99) Laboratory Tests Test 10/01/20 11:09 10/01/20 16:15 10/01/20 20:43 10/02/20 07:02 Glucose (Fingerstick) 139 mg/dL (70-99) 142 mg/dL (70-99) 151 mg/dL (70-99) 127 mg/dL (70-99) Assessment/Plan s/p open appy dc instrument room technician check labs watch drain output wean o2 as able Justicifation of Admission Dx: Justifications for Admission: Justification of Admission Dx: Yes MADISYN JOHNSON MD 10/02/20 1514: SURGICAL PROGRESS NOTE Assessment/Plan Agree with above ELTON TRAN APRN Oct 02, 2020 08:49 MADISYN JOHNSON MD Oct 02, 2020 15:14
[2020-10-02] MEDS ORDERED: HYDROmorphone 2 MG/ML VIAL IVP PRN (09:00)
[2020-10-02] MEDS: LACTOBACILLUS RHAMNOSUS GG 1 CAPSULE. PO SCH ×2 (09:20→20:57)
[2020-10-02 10:21] LABS: BASO % 1 % (0-3); EOS # 0.4 x10^3/uL (0.0-0.7); EOS % 6 % (0-3); HEMATOCRIT 39.4 % (39.0-53.0); HEMOGLOBIN 13.4 g/dL (13.0-17.5); LYMPH # 0.9 x10^3/uL (1.0-4.8); LYMPH % 13 % (24-48); MEAN CORPUSCULAR HEMOGLOBIN 29 pg (25-35); MEAN CORPUSCULAR HGB CONC 34 g/dL (31-37); MEAN CORPUSCULAR VOLUME 86 fL (79-100); MONO # 0.8 x10^3/uL (0.0-1.1); MONO % 12 % (0-9); NEUT # 4.9 x10^3/uL (1.8-7.7); NEUT % 68 % (31-73); PLATELET COUNT 307 x10^3/uL (140-400); RED BLOOD COUNT 4.59 x10^6/uL (4.30-5.70); RED CELL DISTRIBUTION WIDTH 12.8 % (11.5-14.5); WHITE BLOOD COUNT 7.2 x10^3/uL (4.0-11.0)
[2020-10-02 10:36] LABS: ALBUMIN 2.5 g/dL (3.4-5.0); ALBUMIN/GLOBULIN RATIO 0.7 (1.0-1.7); CALCIUM 8.5 mg/dL (8.5-10.1); CREATININE 0.9 mg/dL (0.7-1.3); GFR 87.9; POTASSIUM 3.4 mmol/L (3.5-5.1); TOTAL BILIRUBIN 0.6 mg/dL (0.2-1.0); TOTAL PROTEIN 6.1 g/dL (6.4-8.2)
[2020-10-02 11:00] VITALS: BP 130/81
--- NOTE | 2020-10-02 11:08 | NUR ---
SW following. Discussed with RN, pt from home alone, 2L (does not use at home, RN will wean), GI soft, CUSTOMS AND BORDER PROTECTION INSPECTOR. RN advised no SW needs at this time. SW will continue to follow.
[2020-10-02] MEDS: oxyCODONE/APAP 5/325 1 TAB TABLET PO PRN ×2 (12:57→18:41)
--- NOTE | 2020-10-02 14:57 | PDOC ---
[employer] PROGRESS NOTE Date of Service DOS: DATE: 10/02/20 TIME: 14:56 Chief Complaint Chief Complaint Acute appendicitis Leukocytosis secondary to the above Diabetes mellitus type 2 Plan Resume home medications Pain management Incentive spirometer Awaiting for proper return of bowel function as per surgical aides teacher DT prophylaxis with Lovenox once approved by surgical aides teacher Sequential compression devices History of Present Illness History of Present Illness History of Present Illness Patient is a 55-year-old gentleman with past medical history of diabetes who was in his usual state of health until approximately couple of hours prior to his evaluation at [facility] when he complained of sharp pain sudden onset of right lower quadrant which is a recurrence of previous bouts as he relates to me. He rated the pain at 8 out of 10 intensity with no associated nausea vomiting he did have some diaphoresis due to the discomfort no urinary symptoms no constipation no diarrhea. He was diagnosed with acute appendicitis in the outlying facility and transferred to our institution for definitive treatment with appendectomy. At the time my evaluation the patient is mildly uncomfortable and is awaiting for surgical intervention. Reassurance has been provided the patient denied any headache blurred vision no dysphagia odynophagia no slurred speech no chest pain palpitations no shortness of breath no other complaints were voiced no urinary symptoms. Plan of care explained detail all of her concerns and progress to the best of my abilities 09/29: Patient in acute distress, seems to be in a lot of pain despite the MINE FOREMAN pump, no nausea, no vomiting reported. 09/30: Patient still feeling nauseous despite keeping him on a clear liquid diet. Patient encouraged to ambulate more. Incentive spirometry has also been encourage no new complaints 10/02/2020 No acute events overnight. Patient is having flatus but no bowel movement as of yet. No nausea vomiting. Patient's chart, labs, images were reviewed and discussed with RN Vitals/I&O Vitals/I&O: Vital Signs Date Time Temp Pulse Resp B/P (MAP) Pulse Ox O2 Delivery O2 Flow Rate FiO2 10/02/20 12:57 20 10/02/20 11:00 97.1 69 130/81 (97) 94 2.0 97.1 10/02/20 08:00 Room Air I & O 10/01/20 10/01/20 10/02/20 15:00 23:00 07:00 Intake Total 900 ml Output Total 180 ml 200 ml 760 ml Balance -180 ml -200 ml 140 ml Physical Exam General: Alert, Oriented X3, Cooperative Heart: Regular rate, Normal S1, Normal S2 Abdomen: Soft, Other (ND, incision c/d/i, angie in place, drain serous ) Extremities: No clubbing, No cyanosis Skin: No rashes, No breakdown Labs Labs: Laboratory Tests Test 10/01/20 16:15 10/01/20 20:43 10/02/20 07:02 10/02/20 10:03 Glucose (Fingerstick) 142 mg/dL (70-99) 151 mg/dL (70-99) 127 mg/dL (70-99) White Blood Count 7.2 x10^3/uL (4.0-11.0) Red Blood Count 4.59 x10^6/uL (4.30-5.70) Hemoglobin 13.4 g/dL (13.0-17.5) Hematocrit 39.4 % (39.0-53.0) Mean Corpuscular Volume 86 fL (79-100) Mean Corpuscular Hemoglobin 29 pg (25-35) Mean Corpuscular Hemoglobin Concent 34 g/dL (31-37) Red Cell Distribution Width 12.8 % (11.5-14.5) Platelet Count 307 x10^3/uL (140-400) Neutrophils (%) (Auto) 68 % (31-73) Lymphocytes (%) (Auto) 13 % (24-48) Monocytes (%) (Auto) 12 % (0-9) Eosinophils (%) (Auto) 6 % (0-3) Basophils (%) (Auto) 1 % (0-3) Neutrophils # (Auto) 4.9 x10^3/uL (1.8-7.7) Lymphocytes # (Auto) 0.9 x10^3/uL (1.0-4.8) Monocytes # (Auto) 0.8 x10^3/uL (0.0-1.1) Eosinophils # (Auto) 0.4 x10^3/uL (0.0-0.7) Basophils # (Auto) 0.0 x10^3/uL (0.0-0.2) Sodium Level 139 mmol/L (136-145) Potassium Level 3.4 mmol/L (3.5-5.1) Chloride Level 102 mmol/L (98-107) Carbon Dioxide Level 29 mmol/L (21-32) Anion Gap 8 (6-14) Blood Urea Nitrogen 11 mg/dL (8-26) Creatinine 0.9 mg/dL (0.7-1.3) Estimated GFR (Cockcroft-Gault) 87.9 BUN/Creatinine Ratio 12 (6-20) Glucose Level 147 mg/dL (70-99) Calcium Level 8.5 mg/dL (8.5-10.1) Total Bilirubin 0.6 mg/dL (0.2-1.0) Aspartate Amino Transf (AST/SGOT) 8 U/L (15-37) Alanine Aminotransferase (ALT/SGPT) 21 U/L (16-63) Alkaline Phosphatase 39 U/L (46-116) Total Protein 6.1 g/dL (6.4-8.2) Albumin 2.5 g/dL (3.4-5.0) Albumin/Globulin Ratio 0.7 (1.0-1.7) Test 10/02/20 11:07 Glucose (Fingerstick) 138 mg/dL (70-99) Comment Review of Relevant I have reviewed the following items merrill (where applicable) has been applied. Medications: Current Medications Medications (Trade) Dose Ordered Sig/Raymond Route PRN Reason Start Time Stop Time Status Last Admin Dose Admin Oxycodone/ Acetaminophen (Percocet 5/325) 1 tab PRN Q4HRS PRN PO PAIN 10/02/20 09:00 10/02/20 12:57 Justifications for Admission Other Justification RAMON BO MD Oct 02, 2020 14:57
[2020-10-02 15:00] VITALS: BP 133/78
--- NOTE | 2020-10-02 18:39 | NUR ---
srinath has ambulated in the room and hallways. continues to have gas pain--rating it an "8" tolerating his diet fair. becomes full and nauseated if attempts to eat too much. insulin for supper held related to blood sugar being drawn 30 min after eating.
[2020-10-02 19:00] VITALS: BP 134/84
[2020-10-02] MEDS: INSULIN GLARGINE SYRINGE. SQ SCH (20:58)
[2020-10-02 22:57] VITALS: BP 130/74
[2020-10-03 02:53] VITALS: BP 139/70
[2020-10-03] MEDS: IV NORMAL SALINE 1000ML BAG 1,000 ML IV SCH ×2 (04:54→14:30)
[2020-10-03] MEDS: oxyCODONE/APAP 5/325 1 TAB TABLET PO PRN ×3 (04:54→16:46)
[2020-10-03] MEDS: PIPERACILLIN/TAZOBACTAM 3.375 GM in IV NORMAL SALINE 50ML 50 ML IV SCH (05:58)
[2020-10-03 07:00] VITALS: BP 134/82
[2020-10-03] MEDS: INSULIN LISPRO 300 UNITS/3 ML VIAL. SQ SCH ×3 (07:43→18:52)
--- NOTE | 2020-10-03 09:08 | PDOC ---
ELTON TRAN LEAN MANUFACTURING ENGINEER 10/03/20 0908: SURGICAL PROGRESS NOTE DATE: 10/03/20 TIME: 09:07 Subjective tolerating diet + flatus, no stool pain managed Vital Signs Vital Signs Date Time Temp Pulse Resp B/P (MAP) Pulse Ox O2 Delivery O2 Flow Rate FiO2 10/03/20 07:00 97.7 67 18 134/82 (99) 96 Room Air 97.7 10/02/20 15:00 2.0 I&O Intake and Output 10/03/20 07:00 Output Total 850 ml Balance -850 ml Output Urine Total 550 ml Drainage Total 300 ml # Voids 5 General: Alert, Oriented X3, Cooperative Abdomen: Soft, Other (ger serous) Labs Laboratory Tests Test 10/01/20 11:09 10/01/20 16:15 10/01/20 20:43 10/02/20 07:02 Glucose (Fingerstick) 139 mg/dL (70-99) 142 mg/dL (70-99) 151 mg/dL (70-99) 127 mg/dL (70-99) Test 10/02/20 10:03 10/02/20 11:07 10/02/20 18:27 10/02/20 19:58 White Blood Count 7.2 x10^3/uL (4.0-11.0) Red Blood Count 4.59 x10^6/uL (4.30-5.70) Hemoglobin 13.4 g/dL (13.0-17.5) Hematocrit 39.4 % (39.0-53.0) Mean Corpuscular Volume 86 fL (79-100) Mean Corpuscular Hemoglobin 29 pg (25-35) Mean Corpuscular Hemoglobin Concent 34 g/dL (31-37) Red Cell Distribution Width 12.8 % (11.5-14.5) Platelet Count 307 x10^3/uL (140-400) Neutrophils (%) (Auto) 68 % (31-73) Lymphocytes (%) (Auto) 13 % (24-48) Monocytes (%) (Auto) 12 % (0-9) Eosinophils (%) (Auto) 6 % (0-3) Basophils (%) (Auto) 1 % (0-3) Neutrophils # (Auto) 4.9 x10^3/uL (1.8-7.7) Lymphocytes # (Auto) 0.9 x10^3/uL (1.0-4.8) Monocytes # (Auto) 0.8 x10^3/uL (0.0-1.1) Eosinophils # (Auto) 0.4 x10^3/uL (0.0-0.7) Basophils # (Auto) 0.0 x10^3/uL (0.0-0.2) Sodium Level 139 mmol/L (136-145) Potassium Level 3.4 mmol/L (3.5-5.1) Chloride Level 102 mmol/L (98-107) Carbon Dioxide Level 29 mmol/L (21-32) Anion Gap 8 (6-14) Blood Urea Nitrogen 11 mg/dL (8-26) Creatinine 0.9 mg/dL (0.7-1.3) Estimated GFR (Cockcroft-Gault) 87.9 BUN/Creatinine Ratio 12 (6-20) Glucose Level 147 mg/dL (70-99) Calcium Level 8.5 mg/dL (8.5-10.1) Total Bilirubin 0.6 mg/dL (0.2-1.0) Aspartate Amino Transf (AST/SGOT) 8 U/L (15-37) Alanine Aminotransferase (ALT/SGPT) 21 U/L (16-63) Alkaline Phosphatase 39 U/L (46-116) Total Protein 6.1 g/dL (6.4-8.2) Albumin 2.5 g/dL (3.4-5.0) Albumin/Globulin Ratio 0.7 (1.0-1.7) Glucose (Fingerstick) 138 mg/dL (70-99) 164 mg/dL (70-99) 168 mg/dL (70-99) Test 10/03/20 07:24 Glucose (Fingerstick) 150 mg/dL (70-99) Laboratory Tests Test 10/02/20 10:03 10/02/20 11:07 10/02/20 18:27 10/02/20 19:58 White Blood Count 7.2 x10^3/uL (4.0-11.0) Red Blood Count 4.59 x10^6/uL (4.30-5.70) Hemoglobin 13.4 g/dL (13.0-17.5) Hematocrit 39.4 % (39.0-53.0) Mean Corpuscular Volume 86 fL (79-100) Mean Corpuscular Hemoglobin 29 pg (25-35) Mean Corpuscular Hemoglobin Concent 34 g/dL (31-37) Red Cell Distribution Width 12.8 % (11.5-14.5) Platelet Count 307 x10^3/uL (140-400) Neutrophils (%) (Auto) 68 % (31-73) Lymphocytes (%) (Auto) 13 % (24-48) Monocytes (%) (Auto) 12 % (0-9) Eosinophils (%) (Auto) 6 % (0-3) Basophils (%) (Auto) 1 % (0-3) Neutrophils # (Auto) 4.9 x10^3/uL (1.8-7.7) Lymphocytes # (Auto) 0.9 x10^3/uL (1.0-4.8) Monocytes # (Auto) 0.8 x10^3/uL (0.0-1.1) Eosinophils # (Auto) 0.4 x10^3/uL (0.0-0.7) Basophils # (Auto) 0.0 x10^3/uL (0.0-0.2) Sodium Level 139 mmol/L (136-145) Potassium Level 3.4 mmol/L (3.5-5.1) Chloride Level 102 mmol/L (98-107) Carbon Dioxide Level 29 mmol/L (21-32) Anion Gap 8 (6-14) Blood Urea Nitrogen 11 mg/dL (8-26) Creatinine 0.9 mg/dL (0.7-1.3) Estimated GFR (Cockcroft-Gault) 87.9 BUN/Creatinine Ratio 12 (6-20) Glucose Level 147 mg/dL (70-99) Calcium Level 8.5 mg/dL (8.5-10.1) Total Bilirubin 0.6 mg/dL (0.2-1.0) Aspartate Amino Transf (AST/SGOT) 8 U/L (15-37) Alanine Aminotransferase (ALT/SGPT) 21 U/L (16-63) Alkaline Phosphatase 39 U/L (46-116) Total Protein 6.1 g/dL (6.4-8.2) Albumin 2.5 g/dL (3.4-5.0) Albumin/Globulin Ratio 0.7 (1.0-1.7) Glucose (Fingerstick) 138 mg/dL (70-99) 164 mg/dL (70-99) 168 mg/dL (70-99) Test 10/03/20 07:24 Glucose (Fingerstick) 150 mg/dL (70-99) Assessment/Plan dc fluids, abx add stool softener, continue drain home once has stool Justicifation of Admission Dx: Justifications for Admission: Justification of Admission Dx: Yes MADISYN JOHNSON MD 10/03/20 1013: SURGICAL PROGRESS NOTE Assessment/Plan Agree with above ELTON TRAN APRN Oct 03, 2020 09:08 MADISYN JOHNSON MD Oct 03, 2020 10:13
[2020-10-03 09:30] LABS: CALCIUM 8.8 mg/dL (8.5-10.1); GFR 77.9; MAGNESIUM 2.1 mg/dL (1.8-2.4); POTASSIUM 3.5 mmol/L (3.5-5.1)
[2020-10-03 11:00] VITALS: BP 124/74
--- NOTE | 2020-10-03 11:30 | NUR ---
SW following. Discussed with RN, pt from home alone, rom air, GI soft. OIL WELL SERVICES DISPATCHER was stopped. Per surgical note, pt can discharge home after BM. RN advised no SW needs at this time. SW will continue to follow.
[2020-10-03] MEDS: LACTOBACILLUS RHAMNOSUS GG 1 CAPSULE. PO SCH ×2 (12:05→20:16)
[2020-10-03] MEDS: DOCUSATE SODIUM 100 MG CAPSULE. PO SCH ×2 (12:05→20:16)
--- NOTE | 2020-10-03 14:42 | PDOC ---
[employer] PROGRESS NOTE Date of Service DOS: DATE: 10/03/20 TIME: 14:41 Chief Complaint Chief Complaint Acute appendicitis SIRS with organ dysfunction Leukocytosis secondary to the above Diabetes mellitus type 2 Plan Resume home medications Pain management Incentive spirometer Awaiting for proper return of bowel function as per professional benefits sales consultant DT prophylaxis with Lovenox once approved by professional benefits sales consultant Sequential compression devices History of Present Illness History of Present Illness History of Present Illness Patient is a 55-year-old gentleman with past medical history of diabetes who was in his usual state of health until approximately couple of hours prior to his evaluation at [facility] when he complained of sharp pain sudden onset of right lower quadrant which is a recurrence of previous bouts as he relates to me. He rated the pain at 8 out of 10 intensity with no associated nausea vomiting he did have some diaphoresis due to the discomfort no urinary symptoms no constipation no diarrhea. He was diagnosed with acute appendicitis in the outlying facility and transferred to our institution for definitive treatment with appendectomy. At the time my evaluation the patient is mildly uncomfortable and is awaiting for surgical intervention. Reassurance has been provided the patient denied any headache blurred vision no dysphagia odynophagia no slurred speech no chest pain palpitations no shortness of breath no other complaints were voiced no urinary symptoms. Plan of care explained detail all of her concerns and progress to the best of my abilities 09/29: Patient in acute distress, seems to be in a lot of pain despite the SUPERVISOR LEAF [employer]ING [employer]ABRICATION pump, no nausea, no vomiting reported. 09/30: Patient still feeling nauseous despite keeping him on a clear liquid diet. Patient encouraged to ambulate more. Incentive spirometry has also been encourage no new complaints 10/02/2020 No acute events overnight. Patient is having flatus but no bowel movement as of yet. No nausea vomiting. Patient's chart, labs, images were reviewed and discussed with RN 10/03/2020 No acute events overnight. Passing flatus but no bowel movement yet. Pain is well controlled. Patient's chart, labs, images were reviewed and discussed with RN Vitals/I&O Vitals/I&O: Vital Signs Date Time Temp Pulse Resp B/P (MAP) Pulse Ox O2 Delivery O2 Flow Rate FiO2 10/03/20 13:15 Room Air 10/03/20 11:00 98.2 68 16 124/74 (91) 97 98.2 10/02/20 15:00 2.0 I & O 10/02/20 10/02/20 10/03/20 15:00 23:00 07:00 Output Total 50 ml 800 ml Balance -50 ml -800 ml Physical Exam General: Alert, Oriented X3, Cooperative Heart: Regular rate, Normal S1, Normal S2 Abdomen: Soft, Other (ger serous) Extremities: No clubbing, No cyanosis Skin: No rashes, No breakdown Labs Labs: Laboratory Tests Test 10/02/20 18:27 10/02/20 19:58 10/03/20 07:24 10/03/20 09:00 Glucose (Fingerstick) 164 mg/dL (70-99) 168 mg/dL (70-99) 150 mg/dL (70-99) Sodium Level 138 mmol/L (136-145) Potassium Level 3.5 mmol/L (3.5-5.1) Chloride Level 102 mmol/L (98-107) Carbon Dioxide Level 27 mmol/L (21-32) Anion Gap 9 (6-14) Blood Urea Nitrogen 9 mg/dL (8-26) Creatinine 1.0 mg/dL (0.7-1.3) Estimated GFR (Cockcroft-Gault) 77.9 Glucose Level 170 mg/dL (70-99) Calcium Level 8.8 mg/dL (8.5-10.1) Magnesium Level 2.1 mg/dL (1.8-2.4) Comment Review of Relevant I have reviewed the following items merrill (where applicable) has been applied. Medications: Current Medications Medications (Trade) Dose Ordered Sig/Raymond Route PRN Reason Start Time Stop Time Status Last Admin Dose Admin Docusate Sodium (Colace) 100 mg BID PO 10/03/20 09:15 10/03/20 12:05 Justifications for Admission Other Justification RAMON BO MD Oct 03, 2020 14:42
[2020-10-03 15:00] VITALS: BP 121/82
[2020-10-03] MEDS ORDERED: KETOROLAC 30 MG/ML VIAL. IVP ONE (15:30)
[2020-10-03 19:00] VITALS: BP 127/88
[2020-10-03] MEDS ORDERED: INSULIN LISPRO 300 UNITS/3 ML VIAL. SQ ONE (20:00)
[2020-10-03] MEDS: INSULIN GLARGINE SYRINGE. SQ SCH (20:21)
[2020-10-03] MEDS ORDERED: KETOROLAC 30 MG/ML VIAL. IVP PRN (21:00)
[2020-10-03 23:00] VITALS: BP 147/92
[2020-10-04 03:00] VITALS: BP 130/79
[2020-10-04 07:00] VITALS: BP 137/79
[2020-10-04] MEDS: INSULIN LISPRO 300 UNITS/3 ML VIAL. SQ SCH ×3 (08:00→17:00)
--- NOTE | 2020-10-04 09:19 | PDOC ---
ELTON TRAN SERVICE VEHICLE OPERATOR 10/04/20 0919: SURGICAL PROGRESS NOTE DATE: 10/04/20 TIME: 09:18 Subjective no stool some pain at drain site Vital Signs Vital Signs Date Time Temp Pulse Resp B/P (MAP) Pulse Ox O2 Delivery O2 Flow Rate FiO2 10/04/20 07:00 98.0 68 16 137/79 (98) 95 Room Air 98.0 I&O Intake and Output 10/04/20 07:00 Intake Total 900 ml Output Total 655 ml Balance 245 ml Intake Oral 900 ml Drainage Total 655 ml # Voids 3 General: Alert, Oriented X3, Cooperative Abdomen: Soft, Other (incision c/d/i, angie in place, ger serous) Labs Laboratory Tests Test 10/02/20 10:03 10/02/20 11:07 10/02/20 18:27 10/02/20 19:58 White Blood Count 7.2 x10^3/uL (4.0-11.0) Red Blood Count 4.59 x10^6/uL (4.30-5.70) Hemoglobin 13.4 g/dL (13.0-17.5) Hematocrit 39.4 % (39.0-53.0) Mean Corpuscular Volume 86 fL (79-100) Mean Corpuscular Hemoglobin 29 pg (25-35) Mean Corpuscular Hemoglobin Concent 34 g/dL (31-37) Red Cell Distribution Width 12.8 % (11.5-14.5) Platelet Count 307 x10^3/uL (140-400) Neutrophils (%) (Auto) 68 % (31-73) Lymphocytes (%) (Auto) 13 % (24-48) Monocytes (%) (Auto) 12 % (0-9) Eosinophils (%) (Auto) 6 % (0-3) Basophils (%) (Auto) 1 % (0-3) Neutrophils # (Auto) 4.9 x10^3/uL (1.8-7.7) Lymphocytes # (Auto) 0.9 x10^3/uL (1.0-4.8) Monocytes # (Auto) 0.8 x10^3/uL (0.0-1.1) Eosinophils # (Auto) 0.4 x10^3/uL (0.0-0.7) Basophils # (Auto) 0.0 x10^3/uL (0.0-0.2) Sodium Level 139 mmol/L (136-145) Potassium Level 3.4 mmol/L (3.5-5.1) Chloride Level 102 mmol/L (98-107) Carbon Dioxide Level 29 mmol/L (21-32) Anion Gap 8 (6-14) Blood Urea Nitrogen 11 mg/dL (8-26) Creatinine 0.9 mg/dL (0.7-1.3) Estimated GFR (Cockcroft-Gault) 87.9 BUN/Creatinine Ratio 12 (6-20) Glucose Level 147 mg/dL (70-99) Calcium Level 8.5 mg/dL (8.5-10.1) Total Bilirubin 0.6 mg/dL (0.2-1.0) Aspartate Amino Transf (AST/SGOT) 8 U/L (15-37) Alanine Aminotransferase (ALT/SGPT) 21 U/L (16-63) Alkaline Phosphatase 39 U/L (46-116) Total Protein 6.1 g/dL (6.4-8.2) Albumin 2.5 g/dL (3.4-5.0) Albumin/Globulin Ratio 0.7 (1.0-1.7) Glucose (Fingerstick) 138 mg/dL (70-99) 164 mg/dL (70-99) 168 mg/dL (70-99) Test 10/03/20 07:24 10/03/20 09:00 10/03/20 19:12 10/04/20 07:03 Glucose (Fingerstick) 150 mg/dL (70-99) 150 mg/dL (70-99) 131 mg/dL (70-99) Sodium Level 138 mmol/L (136-145) Potassium Level 3.5 mmol/L (3.5-5.1) Chloride Level 102 mmol/L (98-107) Carbon Dioxide Level 27 mmol/L (21-32) Anion Gap 9 (6-14) Blood Urea Nitrogen 9 mg/dL (8-26) Creatinine 1.0 mg/dL (0.7-1.3) Estimated GFR (Cockcroft-Gault) 77.9 Glucose Level 170 mg/dL (70-99) Calcium Level 8.8 mg/dL (8.5-10.1) Magnesium Level 2.1 mg/dL (1.8-2.4) Laboratory Tests Test 10/03/20 19:12 10/04/20 07:03 Glucose (Fingerstick) 150 mg/dL (70-99) 131 mg/dL (70-99) Assessment/Plan add miralax remove angie leave ger for now Justicifation of Admission Dx: Justifications for Admission: Justification of Admission Dx: Yes MADISYN JOHNSON MD 10/04/20 1119: SURGICAL PROGRESS NOTE Assessment/Plan agree with above ELTON TRAN APRN Oct 04, 2020 09:19 MADISYN JOHNSON MD Oct 04, 2020 11:19
--- NOTE | 2020-10-04 09:43 | NUR ---
SW following. Discussed with RN, pt from home alone, room air, GI soft. Carmelina drain being removed. Pt can discharge home after a BM. RN advised no SW needs at this time. SW will continue to follow.
[2020-10-04] MEDS ORDERED: POLYETHYLENE GLYCOL 3350 17 GM PACKET. PO SCH (10:00)
[2020-10-04] MEDS: DOCUSATE SODIUM 100 MG CAPSULE. PO SCH (10:14)
[2020-10-04] MEDS: LACTOBACILLUS RHAMNOSUS GG 1 CAPSULE. PO SCH (10:14)
[2020-10-04] MEDS: oxyCODONE/APAP 5/325 1 TAB TABLET PO PRN ×2 (10:14→15:38)
[2020-10-04 11:00] VITALS: BP 128/85
--- NOTE | 2020-10-04 11:18 | PDOC ---
[employer] PROGRESS NOTE Date of Service DOS: DATE: 10/04/20 TIME: 11:17 Chief Complaint Chief Complaint Acute appendicitis SIRS with organ dysfunction Leukocytosis secondary to the above Diabetes mellitus type 2 Plan Resume home medications Pain management Incentive spirometer Awaiting for proper return of bowel function as per surgical garment assembly supervisor DT prophylaxis with Lovenox once approved by surgical garment assembly supervisor Sequential compression devices History of Present Illness History of Present Illness History of Present Illness Patient is a 55-year-old gentleman with past medical history of diabetes who was in his usual state of health until approximately couple of hours prior to his evaluation at [facility] when he complained of sharp pain sudden onset of right lower quadrant which is a recurrence of previous bouts as he relates to me. He rated the pain at 8 out of 10 intensity with no associated nausea vomiting he did have some diaphoresis due to the discomfort no urinary symptoms no constipation no diarrhea. He was diagnosed with acute appendicitis in the outlying facility and transferred to our institution for definitive treatment with appendectomy. At the time my evaluation the patient is mildly uncomfortable and is awaiting for surgical intervention. Reassurance has been provided the patient denied any headache blurred vision no dysphagia odynophagia no slurred speech no chest pain palpitations no shortness of breath no other complaints were voiced no urinary symptoms. Plan of care explained detail all of her concerns and progress to the best of my abilities 09/29: Patient in acute distress, seems to be in a lot of pain despite the CONSTITUTIONAL LAW PROFESSOR pump, no nausea, no vomiting reported. 09/30: Patient still feeling nauseous despite keeping him on a clear liquid diet. Patient encouraged to ambulate more. Incentive spirometry has also been encourage no new complaints 10/02/2020 No acute events overnight. Patient is having flatus but no bowel movement as of yet. No nausea vomiting. Patient's chart, labs, images were reviewed and discussed with RN 10/03/2020 No acute events overnight. Passing flatus but no bowel movement yet. Pain is well controlled. Patient's chart, labs, images were reviewed and discussed with RN 10/04/2020 No acute events overnight. Rogers removed and GER drain still draining serous fluid. Denies nausea vomiting. Passing flatus but no bowel movement. Patient's chart, labs, images were reviewed and discussed with RN Vitals/I&O Vitals/I&O: Vital Signs Date Time Temp Pulse Resp B/P (MAP) Pulse Ox O2 Delivery O2 Flow Rate FiO2 10/04/20 10:14 Room Air 10/04/20 07:00 98.0 68 16 137/79 (98) 95 98.0 I & O 10/03/20 10/03/20 10/04/20 15:00 23:00 07:00 Intake Total 900 ml Output Total 360 ml 60 ml 235 ml Balance -360 ml -60 ml 665 ml Physical Exam General: Alert, Oriented X3, Cooperative Heart: Regular rate, Normal S1, Normal S2 Abdomen: Soft, Other (incision c/d/i, angie in place, ger serous) Extremities: No clubbing, No cyanosis Skin: No rashes, No breakdown Labs Labs: Laboratory Tests Test 10/03/20 11:18 10/03/20 16:49 10/03/20 19:12 10/04/20 07:03 Glucose (Fingerstick) 169 mg/dL (70-99) 161 mg/dL (70-99) 150 mg/dL (70-99) 131 mg/dL (70-99) Comment Review of Relevant I have reviewed the following items merrill (where applicable) has been applied. Medications: Current Medications Medications (Trade) Dose Ordered Sig/Raymond Route PRN Reason Start Time Stop Time Status Last Admin Dose Admin Ketorolac Tromethamine (Toradol 30mg Vial) 30 mg 1X ONCE IVP 10/03/20 15:30 10/03/20 15:31 DC 10/03/20 15:37 Oxycodone/ Acetaminophen (Percocet 5/325) 2 tab PRN Q4HRS PRN PO PAIN 10/03/20 15:30 10/04/20 10:14 Ketorolac Tromethamine (Toradol 30mg Vial) 30 mg PRN Q6HRS PRN IVP INFLAMMATION 10/03/20 21:00 10/08/20 20:59 10/03/20 21:47 Polyethylene Glycol (miraLAX PACKET) 17 gm DAILY PO 10/04/20 10:00 10/04/20 10:14 Justifications for Admission Other Justification RAMON BO MD Oct 04, 2020 11:18
[2020-10-04] MEDS: IV NORMAL SALINE 1000ML BAG 1,000 ML IV SCH (14:30)
[2020-10-04 15:00] VITALS: BP 121/82
[2020-10-04] MEDS ORDERED: DOCU-153 PO (15:12)
[2020-10-04] MEDS ORDERED: POLY17PO52 PO (15:12)
--- NOTE | 2020-10-04 15:13 | DISCH ---
DISCHARGE INSTRUCTIONS Condition on Discharge Condition on Discharge: Stable Activity After Discharge Activity Instructions for Disc: Activity as tolerated, Avoid exertion Lifting Instructions after Dis: Do not lift >10 pounds Exercise Instruction after Dis: Walk 30 min, 3 x per week Driving Instructions after Dis: Do not drive today Weight Bearing Status after Di: No restrictions Diet after Discharge Diet after Discharge: Cardiac Follow-Up Follow up with: PCP within 2 weeks of discharge Follow Up With: General surgery regarding your postop check and drain removal RAMON BO MD Oct 04, 2020 15:13
--- NOTE | 2020-10-05 19:13 | PDOC3 ---
[facility]-Discharge Summary Date of Admission: Date of Admission: Sep 28, 2020 Date of Discharge: Date of Discharge: Oct 04, 2020 Discharge Diagnosis: Discharge Diagnosis: Acute appendicitis SIRS with organ dysfunction Leukocytosis secondary to the above Diabetes mellitus type 2 Hospital Course: Hospital Course: 55-year-old gentleman with past medical history of diabetes who was in his usual state of health until approximately couple of hours prior to his evaluation at [facility] when he complained of sharp pain sudden onset of right lower quadrant which is a recurrence of previous bouts as he relates to me. He rated the pain at 8 out of 10 intensity with no associated nausea vomiting he did have some diaphoresis due to the discomfort no urinary symptoms no constipation no diarrhea. He was diagnosed with acute appendicitis in the outlying facility and transferred to our institution for definitive treatment with appendectomy. At the time my evaluation the patient is mildly uncomfortab le and is awaiting for surgical intervention. Reassurance has been provided the patient denied any headache blurred vision no dysphagia odynophagia no slurred speech no chest pain palpitations no shortness of breath no other complaints were voiced no urinary symptoms. Plan of care explained detail all of her concerns and progress to the best of my abilities 09/29: Patient in acute distress, seems to be in a lot of pain despite the COCONUT JELLY ROLLER pump, no nausea, no vomiting reported. 09/30: Patient still feeling nauseous despite keeping him on a clear liquid diet. Patient encouraged to ambulate more. Incentive spirometry has also been encou rage no new complaints 10/02/2020 No acute events overnight. Patient is having flatus but no bowel movement as of yet. No nausea vomiting. Patient's chart, labs, images were reviewed and discussed with RN 10/03/2020 No acute events overnight. Passing flatus but no bowel movement yet. Pain is well controlled. Patient's chart, labs, images were reviewed and discussed with RN 10/04/2020 No acute events overnight. [place] removed and GRICELDA drain still draining serous fluid. Denies nausea vomiting. Passing flatus but no bowel movement. Patient's chart, labs, images were reviewed and discussed with RN Patient underwent open appendectomy. He had a BM on his day of discharge and was ready to go. His GRICELDA and angie drains were removed before discharge. Rest of his hospital course was uneventful. Disposition: Disposition/Orders: D/C to Home Activity: Activity: Resume previous activity Diet: Diet: Regular Medications: Home Meds Active Scripts Docusate Sodium (DOK) 100 Mg Capsule, 100 MG PO BID for constipation for 30 Days, #60 CAP Prov:RAMON BO MD 10/04/20 Polyethylene Glycol 3350 (POLYETHYLENE GLYCOL 3350) 17 Gm Powd.pack, 17 GM PO DAILY for constipation for 10 Days, #10 PKT Prov:RAMON BO MD 10/04/20 Reported Medications Phentermine Hcl (PHENTERMINE HCL) 37.5 Mg Capsule, 1 CAP PO DAILYWBKFT for weight loss, #30 CAP 2 Refills 09/28/20 Sitagliptin Phos/Metformin Hcl (JANUMET 50-1,000 MG TABLET) 1 Each Tablet, 1 TAB PO BID for diabetes, #60 TAB 5 Refills 09/28/20 Scheduled Docusate Sodium (Dok), 100 MG PO BID Phentermine Hcl (Phentermine Hcl), 1 CAP PO DAILYWBKFT, (Reported) Polyethylene Glycol 3350 (Polyethylene Glycol 3350), 17 GM PO DAILY Sitagliptin Phos/Metformin Hcl (Janumet 50-1,000 Mg Tablet), 1 TAB PO BID, (Reported) Total Time: Total Time: Total time spent was 25 minutes in preparing scripts, discharge planning with SW and RN, and preparing this discharge summary. Patient seen and examined on day of discharge. Justicifation of Admission Dx: Justifications for Admission: Justification of Admission Dx: Yes RAMON BO MD Oct 05, 2020 19:13
== END 2020-10-04 17:08 | disposition home or self-care (01) | DRG 341 ==
LOC: 4 NORTH 20:40
PROVIDERS: ADMIT Internal Medicine; ATTEND Internal Medicine
PROC: 0WJG4ZZ Inspection of Peritoneal Cavity, Percutaneous Endoscopic Approach (ICD-10-PCS; 2020-09-28)
PROC: 0DTJ0ZZ Resection of Appendix, Open Approach (ICD-10-PCS; principal; 2020-09-28 12:00)
DX: K35.80 Unspecified acute appendicitis (principal); R65.11 Systemic inflammatory response syndrome (SIRS) of non-infectious origin with acute organ dysfunction; Z53.31 Laparoscopic surgical procedure converted to open procedure; E11.9 Type 2 diabetes mellitus without complications; D72.829 Elevated white blood cell count, unspecified
CPT/HCPCS: 36415; 80048; 80053; 82962; 83735; 85025; 88305; 88331; C1769; J1100; J1170; J1815; J1885; J2405; J2543; J2704; J2710; J3010; J3490; J7030; J7120; G0378

== ENCOUNTER → 2021-08-10 | Outpatient (CLI) | payer OTHER ==
[~2021-08-10] MED LIST: DOCU-148 PO; OXYC-325 PO; PHEN37.53 PO; POLY17PO52 PO; SITA1TAB11 PO
== END ==
LOC: LAB 10:10
PROVIDERS: ATTEND Surgery
DX: Z01.812 Encounter for preprocedural laboratory examination (principal); Z20.822 Contact with and (suspected) exposure to COVID-19
CPT/HCPCS: U0003; U0005

== ENCOUNTER 2021-08-13 09:38 | Observation (INO) | payer OTHER ==
[~2021-08-13] VITALS: Ht 185.4 cm; Wt 99.0 kg
[~2021-08-13 09:38] MED LIST changes: +IV RINGERS,LACTATED 1000ML 1,000 ML IV SCH; +MORPHINE SULFATE 2 MG/ML INJ. IVP PRN; -OXYC-325 PO; +PROCHLORPERAZINE 10 MG/2 ML VIAL. IVP PRN; +fentaNYL PF VIAL 100 MCG/2 ML VIAL IVP PRN
[2021-08-13] MEDS ORDERED: MIDAZOLAM HCL/PF 2 MG/2 ML VIAL. ONE (10:12)
[2021-08-13] MEDS ORDERED: fentaNYL PF VIAL 100 MCG/2 ML VIAL ONE (10:12)
[2021-08-13] MEDS ORDERED: PROPOFOL 10 MG/ML (20ML) VIAL. IV ONE (10:12)
[2021-08-13] MEDS ORDERED: FAMOTIDINE 20 MG/2 ML VIAL ONE (10:12)
[2021-08-13] MEDS ORDERED: ONDANSETRON PF 4 MG/2 ML VIAL. ONE (10:12)
[2021-08-13] MEDS ORDERED: DEXAMETHASONE SOD PHOS 4 MG/ML VIAL ONE (10:12)
[2021-08-13] MEDS ORDERED: LIDOCAINE 1% PF 5 ML VIAL. ONE (10:15)
[2021-08-13 10:21] VITALS: BP_SYST 82
[2021-08-13] MEDS ORDERED: BUPIVACAINE-EPI 0.5% 30 ML VIAL KIT. ONE (10:21)
[2021-08-13] MEDS ORDERED: ROCURONIUM 50 MG/5 ML VIAL. ONE ×2 (10:24→12:19)
[2021-08-13] MEDS ORDERED: SCOPOLAMINE 1.5MG PATCH. TD ONE ×2 (10:42→10:45)
[2021-08-13] MEDS: INSULIN LISPRO 100 UNIT/ML 3ML VIAL for OP,RR ONLY. SQ PRN ×2 (10:45→14:27)
[2021-08-13] MEDS ORDERED: MORPHINE SULFATE 10 MG/ML VIAL. ONE (11:49)
--- NOTE | 2021-08-13 13:42 | PDOC4 ---
Operative Note Operative Note Operative Note: Preoperative Diagnosis: Ventral hernia Postoperative Diagnosis: Same Procedure: Ventral hernia repair with mesh Surgeon: Esvin Tar Heater Operator: Kwesi Pemberton MS4 Anesthesia: General EBL: 30 mL Specimen: None Drains: None Complications: None Indication: The patient is a 55-year-old male who was referred due to a ventral hernia. He was offered operative repair. The risks of surgery were discussed which include bleeding, infection, visceral injury, pain, seroma formation, hernia recurrence, anesthetic risk, wound healing problems, potential need for additional surgery procedure. He understands and would like to proceed. Description: The patient was taken to the operating room and placed supine on the operating table. General anesthesia was performed. The abdomen was shaved and prepped with ChloraPrep and draped with sterile towels, sheets, and an Ioban. A vertical midline incision was made excising the prior vertical scar. Cautery dissection was carried down to the fascia. The largest fascial defect was identified superior to the into the patient's right of the umbilicus. In addition there was hernia defect at the umbilicus and one adjacent to it. We elected to open the fascia in the midline essentially connecting the three small hernia defects in to a single hernia. A preperitoneal plane was then developed circumferentially using cautery and blunt dissection. The peritoneum was then approximated in the midline with 0 Vicryl. An elliptical Ventrio ST mesh was then placed in this preperitoneal plane. The mesh was sutured into position at the 12, 3, 6, 9:00 positions using 0 Prolene in horizontal mattress fashion. Dissolvable tacks were placed in between the sutures providing additional fascial fixation. The fascial edges were then closed over the mesh with 0 Prolene. The deep subcutaneous tissue was approximated with 2-0 Vicryl. The superficial subcutaneous tissue was approximated 3-0 Vicryl. The skin was closed with 4-0 Monocryl. Steri-Strips and a sterile dressing were applied. The patient tolerated the procedure well and was sent to the recovery room in stable condition. At the end of the case all counts were correct. MADISYN JOHNSON MD Aug 13, 2021 13:42
[2021-08-13] MEDS ORDERED: IV NORMAL SALINE 1000ML BAG 1,000 ML IV SCH (13:45)
[2021-08-13] MEDS ORDERED: HYDROmorphone 2 MG/ML VIAL ONE ×2 (14:20→16:57)
[2021-08-13] MEDS ORDERED: INSULIN LISPRO 100 UNIT/ML 3ML VIAL for OP,RR ONLY. SQ ONE ×2 (14:30)
[2021-08-13] MEDS: HYDROmorphone 2 MG/ML VIAL IVP PRN ×5 (14:57→16:58)
[2021-08-13] MEDS ORDERED: HYDROmorphone 2 MG/ML VIAL IV PRN (16:00)
[2021-08-13] MEDS ORDERED: oxyCODONE/APAP 5/325 1 TAB TABLET PO PRN (16:00)
[2021-08-13] MEDS ORDERED: 0.9 % SODIUM CHLORIDE 10 ML DISP.SYRIN. IV PRN (16:00)
[2021-08-13] MEDS ORDERED: NALOXONE 0.4 MG/ML VIAL. IV PRN (16:00)
[2021-08-13] MEDS ORDERED: KETOROLAC 15 MG/ML VIAL. IV PRN (16:00)
[2021-08-13] MEDS ORDERED: ONDANSETRON PF 4 MG/2 ML VIAL. IVP PRN (16:00)
[2021-08-13] MEDS ORDERED: TOBRAMYCIN 0.3% OPHTH SOLUTION 5ML BOTTLE. OS ONE (16:15)
--- NOTE | 2021-08-13 18:30 | NUR ---
Pt arrived on unit from PACU at 1800 via bed. Lauren, daughter also present. Pt ambulated to bathroom upon arrival, voided. Pt assisted back to bed. Pt drowsy, rates pain 06/01. 2 bed rails up, call light in place, non skid socks on. Pt connected to IV fluids, on 2L NC. Pt and daughter updated of POC, both verbalize understanding. Will assume care.
[2021-08-13 19:00] VITALS: BP 134/86
[2021-08-13] MEDS: IV 1/2 NORMAL SALINE 1,000 ML IV SCH (21:36)
[2021-08-13] MEDS: oxyCODONE/APAP 5/325 1 TAB TABLET PO PRN (22:36)
[2021-08-13 23:00] VITALS: BP 121/79
[2021-08-14 03:00] VITALS: BP 134/77
[2021-08-14] MEDS: IV 1/2 NORMAL SALINE 1,000 ML IV SCH ×3 (05:25→17:18)
[2021-08-14 07:00] VITALS: BP 120/80
[2021-08-14] MEDS: oxyCODONE/APAP 5/325 1 TAB TABLET PO PRN ×3 (08:20→19:53)
[2021-08-14 11:00] VITALS: BP 117/70
--- NOTE | 2021-08-14 13:26 | PDOC ---
SURGICAL PROGRESS NOTE DATE: 08/14/21 TIME: 13:24 Subjective pretty sore with activity no nausea no flatus yet Vital Signs Vital Signs Date Time Temp Pulse Resp B/P (MAP) Pulse Ox O2 Delivery O2 Flow Rate FiO2 08/14/21 11:00 98.2 83 16 117/70 (86) 94 Room Air 98.2 08/14/21 03:00 2.0 I&O Intake and Output 08/14/21 07:00 Intake Total 1670 ml Output Total 30 ml Balance 1640 ml Intake Oral 120 ml IV Total 1550 ml Output Estimated Blood Loss 30 ml # Voids 2 General: Alert, Cooperative Abdomen: Soft, Other (mildly distended) Labs Laboratory Tests Test 08/13/21 10:31 08/13/21 14:23 08/13/21 21:40 08/14/21 07:44 Glucose (Fingerstick) 150 mg/dL (70-99) 157 mg/dL (70-99) 159 mg/dL (70-99) 148 mg/dL (70-99) Test 08/14/21 11:27 Glucose (Fingerstick) 145 mg/dL (70-99) Laboratory Tests Test 08/13/21 14:23 08/13/21 21:40 08/14/21 07:44 08/14/21 11:27 Glucose (Fingerstick) 157 mg/dL (70-99) 159 mg/dL (70-99) 148 mg/dL (70-99) 145 mg/dL (70-99) Assessment/Plan ambulate, pain control can advance diet as bowel function returns Justicifation of Admission Dx: Justifications for Admission: Justification of Admission Dx: Yes 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
[2021-08-14] MEDS: LINAGLIPTIN 5 MG TABLET PO SCH (14:03)
--- NOTE | 2021-08-14 14:04 | NUR ---
IV fluids nonadministered by this RN. Previous bag still infusing. Refer to EMAR for additional details.
[2021-08-14 15:00] VITALS: BP 108/77
--- NOTE | 2021-08-14 15:59 | NUR ---
SW following. Discussed with RN, pt from home, room air, clear liquid diet. Pt had surgery 08/13/21. RN advised no SW needs, anticipates discharge in the next day or so. SW will continue to follow.
[2021-08-14] MEDS: metFORMIN 500 MG TABLET PO SCH (17:00)
[2021-08-14 19:00] VITALS: BP 129/69
[2021-08-14 23:00] VITALS: BP 113/64
[2021-08-15] MEDS: oxyCODONE/APAP 5/325 1 TAB TABLET PO PRN ×3 (01:49→15:13)
[2021-08-15 03:00] VITALS: BP 109/69
[2021-08-15 07:00] VITALS: BP 126/77
[2021-08-15] MEDS: LINAGLIPTIN 5 MG TABLET PO SCH (08:48)
[2021-08-15] MEDS: metFORMIN 500 MG TABLET PO SCH (08:49)
[2021-08-15 11:00] VITALS: BP 113/77
[2021-08-15] MEDS: IV 1/2 NORMAL SALINE 1,000 ML IV SCH (12:36)
--- NOTE | 2021-08-15 13:26 | PDOC ---
PROGRESS NOTES Date of Service DATE: 08/15/21 TIME: 13:25 Subjective Subjective better today Objective Objective Vital Signs Date Time Temp Pulse Resp B/P (MAP) Pulse Ox O2 Delivery O2 Flow Rate FiO2 08/15/21 11:00 98.7 101 20 113/77 (89) 92 Room Air 98.7 08/14/21 03:00 2.0 Intake and Output 08/15/21 07:00 Intake Total 1869.83 ml Balance 1869.83 ml Intake Oral 960 ml IV Total 909.83 ml # Voids 8 Physical Exam Abdomen: Soft Plan Plan of Care discharge Comment Review of Relevant I have reviewed the following items merrill (where applicable) has been applied. Labs Laboratory Tests Test 08/13/21 14:23 08/13/21 21:40 08/14/21 07:44 08/14/21 11:27 Glucose (Fingerstick) 157 mg/dL (70-99) 159 mg/dL (70-99) 148 mg/dL (70-99) 145 mg/dL (70-99) Test 08/14/21 16:46 08/14/21 20:51 08/15/21 07:14 08/15/21 11:08 Glucose (Fingerstick) 137 mg/dL (70-99) 147 mg/dL (70-99) 127 mg/dL (70-99) 138 mg/dL (70-99) Laboratory Tests Test 08/14/21 16:46 08/14/21 20:51 08/15/21 07:14 08/15/21 11:08 Glucose (Fingerstick) 137 mg/dL (70-99) 147 mg/dL (70-99) 127 mg/dL (70-99) 138 mg/dL (70-99) Medications Current Medications Fentanyl Citrate (Fentanyl 2ml Vial) 25 mcg PRN Q5MIN PRN IVP MILD PAIN 1-3; Start 08/13/21 at 06:00; Stop 08/13/21 at 20:00; Status DC Fentanyl Citrate (Fentanyl 2ml Vial) 50 mcg PRN Q5MIN PRN IVP MODERATE PAIN 4- 6; Start 08/13/21 at 06:00; Stop 08/13/21 at 20:00; Status DC Morphine Sulfate (Morphine Sulfate) 1 mg PRN Q10MIN PRN IVP SEVERE PAIN 7-10; Start 08/13/21 at 06:00; Stop 08/13/21 at 20:00; Status DC Ringer's Solution 1,000 ml @ 30 mls/hr Q24H IV Last administered on 08/13/21at 10:40; Start 08/13/21 at 06:00; Stop 08/13/21 at 17:59; Status DC Hydromorphone HCl (Dilaudid) 0.5 mg PRN Q10MIN PRN IVP SEVERE PAIN 7-10, 2nd CHOICE Last administered on 08/13/21at 16:58; Start 08/13/21 at 06:00; Stop 08/13/21 at 20:00; Status DC Prochlorperazine Edisylate (Compazine) 5 mg PACU PRN PRN IVP NAUSEA, MRX1; Start 08/13/21 at 06:00; Stop 08/13/21 at 20:00; Status DC Cefazolin Sodium/ Dextrose 50 ml @ 100 mls/hr 1X PREOP PRN IV PRIOR TO PROCEDURE; Start 08/13/21 at 06:00; Stop 08/13/21 at 18:00; Status DC Propofol (Diprivan) 200 mg STK-MED ONCE IV ; Start 08/13/21 at 10:12; Stop 08/13/21 at 10:12; Status DC Famotidine (Pepcid Vial) 20 mg STK-MED ONCE .ROUTE ; Start 08/13/21 at 10:12; Stop 08/13/21 at 10:12; Status DC Ondansetron HCl (Zofran) 4 mg STK-MED ONCE .ROUTE ; Start 08/13/21 at 10:12; Stop 08/13/21 at 10:12; Status DC Dexamethasone Sodium Phosphate (Decadron) 4 mg STK-MED ONCE .ROUTE ; Start 08/13/21 at 10:12; Stop 08/13/21 at 10:12; Status DC Fentanyl Citrate (Fentanyl 2ml Vial) 100 mcg STK-MED ONCE .ROUTE ; Start 08/13/21 at 10:12; Stop 08/13/21 at 10:12; Status DC Midazolam HCl (Versed) 2 mg STK-MED ONCE .ROUTE ; Start 08/13/21 at 10:12; Stop 08/13/21 at 10:12; Status DC Lidocaine HCl (Xylocaine-Mpf 1% 5ml Vial) 5 ml STK-MED ONCE .ROUTE ; Start at 10:15; Stop 08/13/21 at 10:15; Status DC Bupivacaine HCl/ Epinephrine Bitart (Sensorcain-Epi 0.5% Kit) 30 ml STK-MED ONCE .ROUTE ; Start 08/13/21 at 10:21; Stop 08/13/21 at 10:21; Status DC Rocuronium [place] (Zemuron) 50 mg STK-MED ONCE .ROUTE ; Start 08/13/21 at 10:24; Stop 08/13/21 at 10:25; Status DC Insulin Human Lispro (HumaLOG VIAL for OP,RR ONLY) 0-10 units PRN Q1HR PRN SQ PER PROTOCOL Last administered on 08/13/21at 14:27; Start 08/13/21 at 10:45; Stop 08/14/21 at 10:44; Status DC Scopolamine (Transderm-Scop) 1 patch 1X ONCE TD Last administered on 08/13/21at 10:44; Start 08/13/21 at 10:45; Stop 08/13/21 at 10:46; Status DC Scopolamine (Transderm-Scop) 1 patch STK-MED ONCE TD ; Start 08/13/21 at 10:42; Stop 08/13/21 at 10:42; Status DC Morphine Sulfate (Morphine Sulfate) 10 mg STK-MED ONCE .ROUTE ; Start 08/13/21 at 11:49; Stop 08/13/21 at 11:50; Status DC Rocuronium [place] (Zemuron) 50 mg STK-MED ONCE .ROUTE ; Start 08/13/21 at 12:19; Stop 08/13/21 at 12:19; Status DC Sodium Chloride (Normal Saline Flush) 3 ml QSHIFT PRN IV AFTER MEDS AND BLOOD DRAWS; Start 08/13/21 at 16:00 Sodium Chloride 1,000 ml @ 100 mls/hr Q10H IV Last administered on 08/15/21at 12:36; Start 08/13/21 at 18:00 Oxycodone/ Acetaminophen (Percocet 5/325) 1 tab PRN Q4HRS PRN PO MILD PAIN, 1ST CHOICE; Start 08/13/21 at 16:00 Oxycodone/ Acetaminophen (Percocet 5/325) 2 tab PRN Q4HRS PRN PO MODERATE PAIN, SEVERE PAIN Last administered on 08/15/21at 08:51; Start 08/13/21 at 16:00 Ketorolac Tromethamine (Toradol 15mg Vial) 15 mg PRN Q6HRS PRN IV PAIN; Start 08/13/21 at 16:00; Stop 08/18/21 at 15:59 Naloxone HCl (Narcan) 0.4 mg PRN Q2MIN PRN IV SEE INSTRUCTIONS; Start 08/13/21 at 16:00 Sodium Chloride 1,000 ml @ 25 mls/hr Q24H IV ; Start 08/13/21 at 13:45; Status UNV Hydromorphone HCl (Dilaudid) 0.2 mg PRN Q1HR PRN IV PAIN; Start 08/13/21 at 16:00 Ondansetron HCl (Zofran) 4 mg PRN Q6HRS PRN IVP NAUESA, 1ST CHOICE; Start 08/13/21 at 16:00 Hydromorphone HCl (Dilaudid) 2 mg STK-MED ONCE .ROUTE ; Start 08/13/21 at 14:20; Stop 08/13/21 at 14:50; Status DC Tobramycin Sulfate (Tobrex Ophth Soln) 1 drop 1X ONCE OS Last administered on 08/13/21at 16:15; Start 08/13/21 at 16:15; Stop 08/13/21 at 16:21; Status DC Hydromorphone HCl (Dilaudid) 2 mg STK-MED ONCE .ROUTE ; Start 08/13/21 at 16:57; Stop 08/13/21 at 16:57; Status DC Metformin HCl (Glucophage) 1,000 mg BIDWMEALS PO Last administered on 08/15/21at 08:49; Start 08/14/21 at 17:00 Linagliptin (Tradjenta) 5 mg DAILY PO Last administered on 08/15/21at 08:48; Start 08/14/21 at 14:00 Active Scripts Active Reported Janumet 50-1,000 Mg Tablet (Sitagliptin Phos/Metformin Hcl) 1 Each Tablet 1 Tab PO BID Vitals/I & O Vital Sign - Last 24 Hours 08/14/21 08/14/21 08/14/2108/14/21 15:00 19:00 20:20 23:00 Temp 98.6 99.3 98.6 98.6 99.3 98.6 Pulse 79 96 112 Resp 18 18 18 B/P (MAP) 108/77 (87) 129/69 (89) 113/64 (80) Pulse Ox 94 95 90 O2 Delivery Room Air Room Air Room Air Room Air 08/15/21 08/15/21 08/15/21 08/15/21 01:49 03:00 06:45 07:00 Temp 99.5 98.6 99.5 98.6 Pulse 104 100 Resp 20 18 18 18 B/P (MAP) 109/69 (82) 126/77 (93) Pulse Ox 90 91 91 O2 Delivery Room Air Room Air Room Air Room Air 08/15/21 08/15/21 08/15/21 08/15/21 08:00 08:51 09:30 11:00 Temp 98.7 98.7 Pulse 101 Resp 18 18 20 B/P (MAP) 113/77 (89) Pulse Ox 91 92 92 O2 Delivery Room Air Room Air Room Air Room Air Intake and Output 08/14/21 08/14/21 08/15/21 15:00 23:00 07:00 Intake Total 480 ml 1389.83 ml Balance 480 ml 1389.83 ml Justifications for Admission Other Justification MADISYN JOHNSON MD Aug 15, 2021 13:26
[2021-08-15] MEDS ORDERED: OXYC-325 PO (13:28)
--- NOTE | 2021-08-15 13:30 | PDOC3 ---
Discharge Summary Visit Information Date of Admission: Aug 13, 2021 Date of Discharge: Aug 15, 2021 Admitting Diagnosis: Ventral hernia Brief Hospital Course Allergies Allergies Coded Allergies Type Severity Reaction Last Updated Verified No Known Drug Allergies 09/28/20 No Vital Signs Vital Signs Date Time Temp Pulse Resp B/P (MAP) Pulse Ox O2 Delivery O2 Flow Rate FiO2 08/15/21 11:00 98.7 101 20 113/77 (89) 92 Room Air 98.7 Lab Results Laboratory Tests Test 08/13/21 14:23 08/13/21 21:40 08/14/21 07:44 08/14/21 11:27 Glucose (Fingerstick) 157 mg/dL (70-99) 159 mg/dL (70-99) 148 mg/dL (70-99) 145 mg/dL (70-99) Test 08/14/21 16:46 08/14/21 20:51 08/15/21 07:14 08/15/21 11:08 Glucose (Fingerstick) 137 mg/dL (70-99) 147 mg/dL (70-99) 127 mg/dL (70-99) 138 mg/dL (70-99) Laboratory Tests Test 08/14/21 16:46 08/14/21 20:51 08/15/21 07:14 08/15/21 11:08 Glucose (Fingerstick) 137 mg/dL (70-99) 147 mg/dL (70-99) 127 mg/dL (70-99) 138 mg/dL (70-99) Brief Hospital Course Mr. Catalan is a 55 old male who presented with a ventral hernia. He underwent surgical repair of the hernia August 13, 2021. His postoperative course was uneventful and he was discharged on August 15 Discharge Information Condition at Discharge: Improved Follow Up: Weeks (2 weeks) Disposition/Orders: D/C to Home Scheduled Sitagliptin Phos/Metformin Hcl (Janumet 50-1,000 Mg Tablet) 1 Each Tablet, 1 TAB PO BID for diabetes, #60 Ref 5 (Reported) Entered as Reported by: ANDRA LOWRY on 09/28/20 0402 Last Taken: Unknown Dose on 08/12/21 Last Action: Converted on 08/14/21 1324 by Kenia Monzon Scheduled PRN Oxycodone HCl/Acetaminophen (Percocet 5-325 mg Tablet) 1 Each Tablet, 1-2 TAB PO Q4-6HRS PRN for PAIN MDD 3 Tablet(s) for 7 Days, #30 Ref 0 Prescribed by: MADISYN JOHNSON on 08/15/21 1328 Justicifation of Admission Dx: Justifications for Admission: Justification of Admission Dx: Yes MADISYN JOHNSON MD Aug 15, 2021 13:30
--- NOTE | 2021-08-15 13:30 | DISCH ---
DISCHARGE INSTRUCTIONS Condition on Discharge Condition on Discharge: Stable Activity After Discharge Activity Instructions for Disc: Other, see below (no lifting over 20 lbs X 6 weeks) Driving Instructions after Dis: Other, see below (no driving if taking pain meds) Diet after Discharge Diet after Discharge: Regular Wound Incision Care Wound/Incision Care: Other, see below (keep dressing clean and dry X 48 hours, may then remove and shower) Follow-Up Follow up with: Dr Johnson in office in 2 weeks, call for appointment [phone] MADISYN JOHNSON MD Aug 15, 2021 13:29
--- NOTE | 2021-08-15 16:05 | NUR ---
Discharge Note: ADOLPH MOHAN J5 [facility] Discharge instructions and discharge home medications reviewed with the patient and a copy given. All questions have been answered and understanding verbalized. The following instructions and handouts were given: Home meds as directed Keep dressing clean dry and intact. Change if dressing gets soiled. May shower, no baths until seen by surgeon. Follow up with Dr. Mcallister in 2 weeks. Discontinued lines and drains: peripheral IV intact, patient tolerated removal, no complications noted. Patient discharged to home via wheelchair on RA accomapnied by the patient's daughter at 1530.
== END 2021-08-15 15:30 | disposition home or self-care (01) ==
LOC: SURG 09:38 → 5 SOUTH 13:42
PROVIDERS: ADMIT Surgery; ATTEND Surgery
PROC: 0WUF0JZ Supplement Abdominal Wall with Synthetic Substitute, Open Approach (ICD-10-PCS; principal; 2021-08-13 11:00)
DX: K43.9 Ventral hernia without obstruction or gangrene (principal); Z79.899 Other long term (current) drug therapy
CPT/HCPCS: 49560; 49568; 82962; A4314; A4364; A4930; A6402; C1781; G0378; G0379; J0690; J1100; J1170; J1815; J2250; J2270; J2405; J2704; J3010; J3490; A4452